=== PATIENT | female | born 1930 | race Caucasian/White ===

== ENCOUNTER 2017-11-11 10:23 | Inpatient (IN) | payer MEDICARE, BC ==
--- NOTE | 2017-11-11 10:59 | EDM.PDOC ---
ED HPI GENERAL MEDICAL PROBLEM - General Chief Complaint: Neuro Symptoms/Deficits Stated Complaint: DIZZY Time Seen by Provider: 11/11/17 10:55 Source of Information: Reports: Patient History Limitations: Reports: No Limitations - History of Present Illness INITIAL COMMENTS - FREE TEXT/NARRATIVE: HISTORY AND PHYSICAL: History of present illness: Patient is an 87-year-old female who presents to the emergency room today by ground ambulance with complaints of dizziness. She states she woke up today and "could barely lift my head up without being dizzy" and could not get comfortable. At this time she did have some nausea. States she was seen last Tuesday by Dr. Merritt and diagnosed with UTI. She was given 3 days of antibiotics and states she felt somewhat better after that. States she does have a history of labyrinthitis and dizziness. She states that in the past she has had to have her ears irrigated, but reports she "just had this done". EMS did give the patient 4 mg of Zofran prior to arrival. He states this has resolved her nausea at this time. Denies any headache, chest pain, palpitations, shortness of breath, abdominal pain, vomiting or diarrhea. Denies any recent injury, trauma or loss of consciousness Past medical history of diabetes type 2, atrial fibrillation/flutter, hypertension, dizziness, labyrinthitis. Review of systems: As per history of present illness and below otherwise all systems reviewed and negative. Past medical history: As per history of present illness and as reviewed below otherwise noncontributory. Surgical history: As per history of present illness and as reviewed below otherwise noncontributory. Social history: No reported history of drug or alcohol abuse. Family history: As per history of present illness and as reviewed below otherwise noncontributory. Physical exam: General: Well-developed and well-nourished 87-year-old female. Alert and oriented. Appears in no acute distress. HEENT: Atraumatic, normocephalic, pupils reactive, negative for conjunctival pallor or scleral icterus, mucous membranes moist, throat clear, neck supple, nontender, trachea midline. Lungs: Clear to auscultation, breath sounds equal bilaterally, chest nontender. Heart: S1S2, irregularly irregular Abdomen: Soft, nondistended, nontender. Negative for masses or hepatosplenomegaly. Negative for costovertebral tenderness. Pelvis: Stable nontender. Genitourinary: Deferred. Rectal: Deferred. Extremities: Atraumatic, moves all extremities well without difficulty or deficits. Neurovascular unremarkable. Neuro: Awake, alert, oriented. Cranial nerves II through XII unremarkable. Cerebellum unremarkable. Motor and sensory unremarkable throughout. Exam nonfocal. CBC, CMP, troponin are normal with the exception of a glucose of 233. She does have a history of diabetes type 2. Patient resting on the cot, continues to be alert and oriented. She did get herself up to the bathroom to void. Unfortunately she did not get a UA to sent to lab. Patient was reeducated. Reviewed her lab results. At this time she states she does not feel comfortable going home as she lives alone and has no one to help watch her. Did offer her observation admission. Will page Dr. Longoria. Dr. Longoria was contacted and consulted on this patient. He agrees to admit her for observation. We'll place on telemetry. Diagnostics: CBC, CMP, EKG, chest x-ray, UA Therapeutics: IV fluid Impression: Dizziness Hx of labyrinthitis Plan: Observation admission to [facility], Telemetry Definitive disposition and diagnosis as appropriate pending reevaluation and review of above. Onset: Today Duration: Hour(s):, Chronic (Intermittently has episodes of dizziness x years) - Related Data Allergies Allergy/AdvReac Type Severity Reaction Status Date / Time No Known Allergies Allergy Verified 11/11/17 10:24 Home Meds: Home Meds Digoxin 125 mcg PO DAILY 02/16/16 [History] Erythromycin Base [Erythromycin 0.5% Ophth Oint] 1 applic OP Q12H 02/16/16 [ History] Furosemide [Lasix] 40 mg PO DAILY 02/16/16 [History] Losartan/Hydrochlorothiazide [Losartan-HCTZ 100-25 MG] 1 each PO DAILY 02/16/16 [History] Meclizine [Antivert] 25 mg PO Q6H PRN #30 tablet 02/16/16 [Rx] Metoprolol Succinate [Toprol XL 50mg] 50 mg PO DAILY 02/16/16 [History] Potassium Chloride 20 meq PO DAILY 02/16/16 [History] Rosuvastatin [Crestor] 20 mg PO DAILY 02/16/16 [History] Warfarin Sodium [Jantoven] 1 mg PO DAILY 02/16/16 [History] Past Medical History HEENT History: Reports: None Cardiovascular History: Reports: Afib, Heart Failure, Hypertension Respiratory History: Reports: None Gastrointestinal History: Reports: None Genitourinary History: Reports: None [employer] History: Reports: Musculoskeletal History: Reports: None Neurological History: Reports: None Psychiatric History: Reports: Anxiety Endocrine/Metabolic History: Reports: Diabetes, Type II Hematologic History: Reports: None Immunologic History: Reports: None Oncologic (Cancer) History: Reports: None Dermatologic History: Reports: None - Infectious Disease History Infectious Disease History: Reports: Chicken Pox, Measles - Past Surgical History Head Surgeries/Procedures: Reports: None HEENT Surgical History: Reports: None Cardiovascular Surgical History: Reports: None Respiratory Surgical History: Reports: None GI Surgical History: Reports: None Female Surgical History: Reports: None Endocrine Surgical History: Reports: None Neurological Surgical History: Reports: None Musculoskeletal Surgical History: Reports: None Oncologic Surgical History: Reports: None Dermatological Surgical History: Reports: None Social & Family History - Family History Family Medical History: Noncontributory - Tobacco Use Smoking Status *Q: Never Smoker - Caffeine Use Caffeine Use: Reports: Coffee, Soda - Recreational Drug Use Recreational Drug Use: No ED ROS GENERAL - Review of Systems Review Of Systems: ROS reveals no pertinent complaints other than HPI. ED EXAM, NEURO - Physical Exam Exam: See Below (See dictation) Course - Vital Signs Last Recorded V/S: Last Vital Signs Temp 97.5 F 11/11/17 10:25 Pulse 95 11/11/17 10:25 Resp 18 11/11/17 10:25 BP 154/90 H 11/11/17 10:25 Pulse Ox 94 L 11/11/17 10:25 Orthostatic Blood Pressure [ 169/71 Standing] Orthostatic Blood Pressure [ 164/87 Sitting] Orthostatic Blood Pressure [ 161/87 Supine] - Orders/Labs/Meds Orders: Active Orders 24 hr Category Date Time Status Admission Status [Patient Status] [ADT] Stat ADT 11/11/17 12:49 Active Cardiac Monitoring [RC] . DIRECTED Care 11/11/17 12:49 Active EKG Documentation Completion [RC] STAT Care 11/11/17 10:26 Active Orthostatic Vital Signs [RC] ASDIRECTED Care 11/11/17 10:35 Active Chest 1V Frontal [CR] Stat Exams 11/11/17 10:35 Taken Head wo Cont [CT] Stat Exams 11/11/17 12:26 Ordered Sodium Chloride 0.9% [Normal Saline] 1,000 ml Med 11/11/17 11:00 Active IV STAT Medication Orders Sodium Chloride (Normal Saline) 1,000 mls @ 200 mls/hr IV STAT ONE Stop: 11/11/17 15:59 Last Admin: 11/11/17 11:27 Dose: 200 mls/hr Labs: Laboratory Tests 11/11/17 11/11/17 11/11/17 Range/Units 10:48 10:48 10:48 WBC 7.84 (4.0-11.0) K/uL RBC 4.69 (4.30-5.90) M/uL Hgb 14.5 (12.0-16.0) g/dL Hct 43.0 (36.0-46.0) % MCV 91.7 (80.0-98.0) fL MCH 30.9 (27.0-32.0) pg MCHC 33.7 (31.0-37.0) g/dL RDW Std Deviation 44.6 (28.0-62.0) fl RDW Coeff of Minnie 14 (11.0-15.0) % Plt Count 150 (150-400) K/uL MPV 10.20 (7.40-12.00) fL Neut % (Auto) 77.1 (48.0-80.0) % Lymph % (Auto) 12.0 L (16.0-40.0) % Upson % (Auto) 9.8 (0.0-15.0) % Eos % (Auto) 0.8 (0.0-7.0) % Baso % (Auto) 0.3 (0.0-1.5) % Neut # (Auto) 6.1 H (1.4-5.7) K/uL Lymph # (Auto) 0.9 (0.6-2.4) K/uL Upson # (Auto) 0.8 (0.0-0.8) K/uL Eos # (Auto) 0.1 (0.0-0.7) K/uL Baso # (Auto) 0.0 (0.0-0.1) K/uL Nucleated RBC % 0.0 /100WBC Nucleated RBCs # 0 K/uL INR 1.80 H (0.86-1.11) Sodium 137 (136-146) mmol/L Potassium 3.6 (3.5-5.1) mmol/L Chloride 103 (98-110) mmol/L Carbon Dioxide 26 (21-31) mmol/L BUN 18 (6.0-23.0) mg/dL Creatinine 0.8 (0.6-1.5) mg/dL Est Cr Clr Drug Dosing 42.93 mL/min Estimated GFR (MDRD) > 60.0 ml/min Glucose 233 H (60-110) mg/dL Calcium 10.5 (8.8-10.8) mg/dL Total Bilirubin 0.9 (0.1-1.5) mg/dL AST 20 (5-40) IU/L ALT 20 (8-54) IU/L Alkaline Phosphatase 50 (40-150) Troponin I < 0.10 (0.0-0.29) NG/ML Total Protein 7.2 (6.0-8.0) g/dL Albumin 4.2 (3.4-4.8) g/dL Globulin 3.0 (2.0-3.5) g/dL Albumin/Globulin Ratio 1.4 (1.3-2.8) Urine Color Urine Appearance Urine pH (5.0-8.0) Ur Specific Holstein (1.001-1.035) Urine Protein (NEGATIVE) mg/dL Urine Glucose (UA) (NEGATIVE) mg/dL Urine Ketones (NEGATIVE) mg/dL Urine Occult Blood (NEGATIVE) Urine Nitrite (NEGATIVE) Urine Bilirubin (NEGATIVE) Urine Urobilinogen (<2.0) EU/dL Ur Leukocyte Esterase (NEGATIVE) Urine RBC (0-2/HPF) Urine WBC (0-5/HPF) Ur Epithelial Cells (NONE-FEW) Urine Bacteria (NEGATIVE) 11/11/17 Range/Units 12:55 WBC (4.0-11.0) K/uL RBC (4.30-5.90) M/uL Hgb (12.0-16.0) g/dL Hct (36.0-46.0) % MCV (80.0-98.0) fL MCH (27.0-32.0) pg MCHC (31.0-37.0) g/dL RDW Std Deviation (28.0-62.0) fl RDW Coeff of Minnie (11.0-15.0) % Plt Count (150-400) K/uL MPV (7.40-12.00) fL Neut % (Auto) (48.0-80.0) % Lymph % (Auto) (16.0-40.0) % Upson % (Auto) (0.0-15.0) % Eos % (Auto) (0.0-7.0) % Baso % (Auto) (0.0-1.5) % Neut # (Auto) (1.4-5.7) K/uL Lymph # (Auto) (0.6-2.4) K/uL Upson # (Auto) (0.0-0.8) K/uL Eos # (Auto) (0.0-0.7) K/uL Baso # (Auto) (0.0-0.1) K/uL Nucleated RBC % /100WBC Nucleated RBCs # K/uL INR (0.86-1.11) Sodium (136-146) mmol/L Potassium (3.5-5.1) mmol/L Chloride (98-110) mmol/L Carbon Dioxide (21-31) mmol/L BUN (6.0-23.0) mg/dL Creatinine (0.6-1.5) mg/dL Est Cr Clr Drug Dosing mL/min Estimated GFR (MDRD) ml/min Glucose (60-110) mg/dL Calcium (8.8-10.8) mg/dL Total Bilirubin (0.1-1.5) mg/dL AST (5-40) IU/L ALT (8-54) IU/L Alkaline Phosphatase (40-150) Troponin I (0.0-0.29) NG/ML Total Protein (6.0-8.0) g/dL Albumin (3.4-4.8) g/dL Globulin (2.0-3.5) g/dL Albumin/Globulin Ratio (1.3-2.8) Urine Color YELLOW Urine Appearance CLEAR Urine pH 6.0 (5.0-8.0) Ur Specific [place] 1.025 (1.001-1.035) Urine Protein TRACE (NEGATIVE) mg/dL Urine Glucose (UA) NEGATIVE (NEGATIVE) mg/dL Urine Ketones NEGATIVE (NEGATIVE) mg/dL Urine Occult Blood NEGATIVE (NEGATIVE) Urine Nitrite NEGATIVE (NEGATIVE) Urine Bilirubin NEGATIVE (NEGATIVE) Urine Urobilinogen 0.2 (<2.0) EU/dL Ur Leukocyte Esterase NEGATIVE (NEGATIVE) Urine RBC 0-1 (0-2/HPF) Urine WBC 0-1 (0-5/HPF) Ur Epithelial Cells RARE (NONE-FEW) Urine Bacteria RARE (NEGATIVE) Meds: Medications Generic Name Dose Route Start Last Admin Trade Name Ochoa PRN Reason Stop Dose Admin Sodium Chloride 1,000 mls @ 200 mls/hr 11/11/17 11:00 11/11/17 11:27 Normal Saline IV 11/11/17 15:59 200 mls/hr STAT ONE Administration Departure - Departure Time of Disposition: 13:11 Disposition: Refer to Observation Clinical Impression: Dizziness - Discharge Information - My Orders Last 24 Hours: My Active Orders 11/11/17 10:26 EKG Documentation Completion [RC] STAT 11/11/17 10:35 Orthostatic Vital Signs [RC] ASDIRECTED Chest 1V Frontal [CR] Stat 11/11/17 11:00 Sodium Chloride 0.9% [Normal Saline] 1,000 ml IV STAT 11/11/17 12:26 Head wo Cont [CT] Stat 11/11/17 12:49 Admission Status [Patient Status] [ADT] Stat Cardiac Monitoring [RC] . DIRECTED - Assessment/Plan Last 24 Hours: My Active Orders 11/11/17 10:26 EKG Documentation Completion [RC] STAT 11/11/17 10:35 Orthostatic Vital Signs [RC] ASDIRECTED Chest 1V Frontal [CR] Stat 11/11/17 11:00 Sodium Chloride 0.9% [Normal Saline] 1,000 ml IV STAT 11/11/17 12:26 Head wo Cont [CT] Stat 11/11/17 12:49 Admission Status [Patient Status] [ADT] Stat Cardiac Monitoring [RC] . DIRECTED
[2017-11-11] MEDS ORDERED: Sodium Chloride 0.9% 1,000 ML IV ONE (11:00)
[2017-11-11 11:16] LABS: CHLORIDE,CL 103 mmol/L (98-110); SODIUM,NA 137 mmol/L (136-146)
[2017-11-11] MEDS ORDERED: Ondansetron 4 MG/2 ML SDV IVPUSH PRN (13:40)
[2017-11-11] MEDS ORDERED: Ondansetron 4 MG Tab.DIS PO PRN (13:40)
[2017-11-11] MEDS ORDERED: Acetaminophen 325 MG Tab PO PRN (13:40)
[2017-11-11] MEDS ORDERED: Meclizine 25 MG Tab PO PRN (13:44)
--- NOTE | 2017-11-11 14:05 | PCM.HP ---
H&P History of Present Illness - General Date of Service: 11/11/17 Admit Problem/Dx: Dizziness Source of Information: Patient, Other History Limitations: Reports: No Limitations - History of Present Illness Initial Comments - Free Text/Narative: 87 yo female presented to ED by EMS with chief complaint of dizziness. Patient states she woke this am and had difficulty getting up. Described a "room spinning" type of feeling without weakness. States she sat on the edge of her bed and did not think she would be able to stand up. She had some associated nausea without vomiting. She denies in weakness, slurring of speach , headache, syncopal event, or other focal neurologic deficits. She recently was seen, last Tuesday by Dr. Pinto who diagnosed her with a UTI. She was treated with abx for 3 days and reports complete resolution of symptoms. She does report some sore throat this am and some fatigue over the last several days. She did receive her influenza vaccine this year. She does have a history of labyrinthitis and dizziness. She was given 4 mg of Zofran in route to hospital and states that her nausea has improved since. She denies any chest pain, sob, or recent trauma. In ED CBC,CMP,CXR, were unremarkable. CT head showed no acute intracranial abnormalities. Patient will be admitted for observation with PT/Ot consult - Related Data Allergies/Adverse Reactions: Allergies Allergy/AdvReac Type Severity Reaction Status Date / Time No Known Allergies Allergy Verified 11/11/17 10:24 Home Medications: Home Meds Digoxin 125 mcg PO DAILY 02/16/16 [History] Erythromycin Base [Erythromycin 0.5% Ophth Oint] 1 applic OP Q12H 02/16/16 [ History] Furosemide [Lasix] 40 mg PO DAILY 02/16/16 [History] Losartan/Hydrochlorothiazide [Losartan-HCTZ 100-25 MG] 1 each PO DAILY 02/16/16 [History] Meclizine [Antivert] 25 mg PO Q6H PRN #30 tablet 02/16/16 [Rx] Metoprolol Succinate [Toprol XL 50mg] 50 mg PO DAILY 02/16/16 [History] Potassium Chloride 20 meq PO DAILY 02/16/16 [History] Rosuvastatin [Crestor] 20 mg PO DAILY 02/16/16 [History] Warfarin Sodium [Jantoven] 1 mg PO DAILY 02/16/16 [History] Past Medical History HEENT History: Reports: None Cardiovascular History: Reports: Afib, Heart Failure, Hypertension Respiratory History: Reports: None Gastrointestinal History: Reports: None Genitourinary History: Reports: None 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: Musculoskeletal History: Reports: None Neurological History: Reports: None Psychiatric History: Reports: Anxiety Endocrine/Metabolic History: Reports: Diabetes, Type II Hematologic History: Reports: None Immunologic History: Reports: None Oncologic (Cancer) History: Reports: None Dermatologic History: Reports: None - Infectious Disease History Infectious Disease History: Reports: Chicken Pox, Measles - Past Surgical History Head Surgeries/Procedures: Reports: None HEENT Surgical History: Reports: None Cardiovascular Surgical History: Reports: None Respiratory Surgical History: Reports: None GI Surgical History: Reports: None Female Surgical History: Reports: None Endocrine Surgical History: Reports: None Neurological Surgical History: Reports: None Musculoskeletal Surgical History: Reports: None Oncologic Surgical History: Reports: None Dermatological Surgical History: Reports: None Social & Family History - Family History Family Medical History: Noncontributory - Tobacco Use Smoking Status *Q: Never Smoker - Caffeine Use Caffeine Use: Reports: None - Recreational Drug Use Recreational Drug Use: No H&P Review of Systems - Review of Systems: Review Of Systems: See Below General: Reports: Fatigue. Denies: Fever, Chills, Malaise, Weakness HEENT: Reports: Sore Throat, Visual Changes. Denies: Dysphasia, Headaches Pulmonary: Denies: Shortness of Breath, Wheezing, Hemoptysis Cardiovascular: Denies: Chest Pain, Palpitations, Edema, Syncope Gastrointestinal: Denies: Abdominal Pain, Black Stool, Bloody Stool Genitourinary: Denies: Dysuria, Hematuria, Flank Pain Musculoskeletal: Denies: Neck Pain, Leg Pain Skin: Denies: Cyanosis Psychiatric: Denies: Confusion Neurological: Reports: Dizziness, Difficulty Walking. Denies: Confusion, Headache, Numbness, Paresthesia, Seizure, Syncope, Trouble Speaking, Weakness, Change in Speech Hematologic/Lymphatic: Reports: Easy Bleeding, Easy Bruising Exam - Exam Exam: See Below - Vital Signs Vital Signs: Last Vital Signs Temp 97.5 F 11/11/17 10:25 Pulse 102 H 11/11/17 13:17 Resp 18 11/11/17 13:17 BP 155/79 H 11/11/17 13:17 Pulse Ox 96 11/11/17 13:17 Weight: 55.9 kg - Exam Quality Assessment: DVT Prophylaxis General: Alert, Oriented, Cooperative HEENT: Conjunctiva Clear, EACs Clear, EOMI, Hearing Intact, Mucosa Moist & [place] , Nares Patent, Normal Nasal Septum, Posterior Pharynx Clear, PERRLA Neck: Supple, Trachea Midline, 2 Lungs: Clear to Auscultation, Normal Respiratory Effort Cardiovascular: Regular Rate, Normal S1, Normal S2, Systolic Murmur GI/Abdominal Exam: Normal Bowel Sounds, Soft, Non-Tender, No Organomegaly, No Distention Back Exam: Normal Inspection Extremities: Normal Inspection, Non-Tender, No Pedal Edema, Normal Capillary Refill Peripheral Pulses: 2+: Radial (L), Radial (R), Posterior Tibial (L), Posterior Tibial (R), Dorsalis Pedis (L), Dorsalis Pedis (R) Skin: Warm, Dry, Intact Neurological: Cranial Nerves Intact Neuro Extensive - Mental Status: Alert, Oriented x3, Normal Mood/Affect, Normal Cognition Neuro Extensive - Motor, Sensory, Reflexes: CN II-XII Intact Psychiatric: Alert, Normal Affect, Normal Mood - Patient Data Result Diagrams: 11/11/17 10:48 11/11/17 10:48 *Q Meaningful Use (ADM) - VTE *Q VTE Criteria *Q: - Stroke *Q Stroke Criteria *Q: - AMI *Q AMI Criteria *Q: - Problem List (1) BPPV (benign paroxysmal positional vertigo) SNOMED Code(s): 220808618 ICD Code: H81.10 - BENIGN PAROXYSMAL VERTIGO, UNSPECIFIED EAR Status: Acute Priority: High Current Visit: Yes Qualifiers: Laterality: unspecified laterality Qualified Code(s): H81.10 - Benign paroxysmal vertigo, unspecified ear (2) Dizziness SNOMED Code(s): 810420593 ICD Code: R42 - DIZZINESS AND GIDDINESS Status: Acute Priority: High Current Visit: Yes (3) Atrial fib/flutter, transient SNOMED Code(s): 639666452 ICD Code: PUI7426 - Status: Chronic Priority: Medium Current Visit: Yes (4) Atrial fibrillation SNOMED Code(s): 12387162 ICD Code: I48.91 - UNSPECIFIED ATRIAL FIBRILLATION Status: Chronic Priority: Medium Current Visit: Yes Qualifiers: Atrial fibrillation type: unspecified Qualified Code(s): I48.91 - Unspecified atrial fibrillation (5) Diabetes mellitus type 2, diet-controlled SNOMED Code(s): 62401193 ICD Code: E11.9 - TYPE 2 DIABETES MELLITUS WITHOUT COMPLICATIONS Status: Chronic Priority: Medium Current Visit: Yes Problem List Initiated/Reviewed/Updated: Yes Orders Last 24hrs: Active Orders 24 hr Category Date Time Status Patient Status [ADT] Routine ADT 11/11/17 13:40 Ordered Antiembolic Devices [RC] PER UNIT ROUTINE Care 11/11/17 13:41 Ordered Oxygen Therapy [RC] PRN Care 11/11/17 13:40 Ordered Up With Assistance [RC] ASDIRECTED Care 11/11/17 13:40 Ordered VTE/DVT Education [RC] PER UNIT ROUTINE Care 11/11/17 13:40 Ordered Vital Signs [RC] Q4H Care 11/11/17 13:40 Ordered OT Evaluation and Treatment [CONS] Routine Cons 11/11/17 13:38 Active PT Evaluation and Treatment [CONS] Routine Cons 11/11/17 13:38 Active Heart Healthy Diet [DIET] Diet 11/11/17 Dinner Ordered BASIC METABOLIC PANEL,BMP [CHEM] AM Lab 11/12/17 05:11 Ordered BASIC METABOLIC PANEL,BMP [CHEM] AM Lab 11/13/17 05:11 Ordered BASIC METABOLIC PANEL,BMP [CHEM] AM Lab 11/14/17 05:11 Ordered CBC WITH AUTO DIFF [HEME] AM Lab 11/12/17 05:11 Ordered CBC WITH AUTO DIFF [HEME] AM Lab 11/13/17 05:11 Ordered CBC WITH AUTO DIFF [HEME] AM Lab 11/14/17 05:11 Ordered INFLUENZA A+B AG SCREEN [RM] Stat Lab 11/11/17 13:40 Uncollected STREP SCRN A RAPID W CULT CONF [RM] Stat Lab 11/11/17 13:40 Uncollected Acetaminophen [Tylenol] Med 11/11/17 13:40 Ordered 650 mg PO Q4H PRN Digoxin [Lanoxin] Med 11/12/17 09:00 Ordered 125 mcg PO DAILY Erythromycin Base [Erythromycin 0.5% Ophth Oint] Med 11/11/17 13:45 Ordered 1 applic OP Q12H Furosemide [Lasix] Med 11/12/17 09:00 Ordered 40 mg PO DAILY Losartan/Hydrochlorothiazide [Losartan-HCTZ 100-25 MG] Med 11/12/17 09:00 Ordered 1 each PO DAILY Meclizine [Antivert] Med 11/11/17 13:44 Ordered 25 mg PO Q6H PRN Metoprolol Succinate [Toprol XL] Med 11/12/17 09:00 Ordered 50 mg PO DAILY Ondansetron [Zofran ODT] Med 11/11/17 13:40 Ordered 4 mg PO Q4H PRN Ondansetron [Zofran] Med 11/11/17 13:40 Ordered 4 mg IVPUSH Q4H PRN Potassium Chloride [Potassium Chloride] Med 11/12/17 09:00 Ordered 20 meq PO DAILY Rosuvastatin [Crestor] Med 11/12/17 09:00 Ordered 20 mg PO DAILY Warfarin Sliding Scale [Coumadin Sliding Scale] Med 11/12/17 09:00 Ordered 1 mg PO DAILY Sequential Compression Device [OM.PC] Per Unit Routine Oth 11/11/17 13:41 Ordered Resuscitation Status Routine Resus Stat 11/11/17 13:40 Ordered Medication Orders Acetaminophen (Tylenol) 650 mg PO Q4H PRN PRN Reason: Pain (Mild 1-3)/fever Digoxin (Lanoxin) 125 mcg PO DAILY MICHELLE Erythromycin (Erythromycin 0.5% Ophth Oint) 1 gm EYEBOTH Q12H MICHELLE Furosemide (Lasix) 40 mg PO DAILY MICHELLE HCTZ/Losartan Potassium (Hyzaar 50-12.5 Mg) 2 tab PO DAILY MICHELLE Sodium Chloride (Normal Saline) 1,000 mls @ 200 mls/hr IV STAT ONE Stop: 11/11/17 15:59 Last Admin: 11/11/17 11:27 Dose: 200 mls/hr Meclizine HCl (Antivert) 25 mg PO Q6H PRN PRN Reason: Dizziness Metoprolol Succinate (Toprol Xl) 50 mg PO DAILY MICHELLE Ondansetron HCl (Zofran Odt) 4 mg PO Q4H PRN PRN Reason: nausea, able to take PO Ondansetron HCl (Zofran) 4 mg IVPUSH Q4H PRN PRN Reason: Nausea Potassium Chloride (Klor-Con M20) 20 meq PO DAILY MICHELLE Rosuvastatin Calcium (Crestor) 20 mg PO DAILY MICHELLE Warfarin Sodium (Coumadin) 1 mg PO DAILY@1400 [facility] Assessment/Plan Comment:: 87 yo female admitted 11/11/17 for dizziness suspected BPPV with pmh of a-fib/ flutter on coumadin, htn, hyperlipidemia, and type II diabetes. Dizziness: Suspect BPPV will have PT/OT see patient today. She does live alone and has no family in town. States that she has good neighbors who help with anything she needs. May need Epy maneuver as per PT/OT. Zofran for nausea. Will get rapid strep for reported sore throat and Influenza screen for fatigue. a-fib/flutter: Telemetery on Coumadin rate controlled. htn: stable resume home meds. hyperlipidemia: Stable resume home meds. Diabetes: Not on home medications and suspect diet controlled will place on ISS low while in house. VTE: SCD on Coumadin Dispo: Tomorrow pending PT/OT
[2017-11-11] MEDS: POTASSIUM 20 MEQ PO SCH ×2 (14:38→20:24)
[2017-11-11] MEDS: ROSUVASTATIN 10 MG PO SCH (14:38)
[2017-11-11] MEDS: DIGOXIN 0.125 MG PO SCH (14:39)
[2017-11-11] MEDS: WARFARIN 1 MG PO SCH (14:39)
[2017-11-11] MEDS: FUROSEMIDE 40 MG PO SCH (14:39)
[2017-11-11] MEDS: LOSARTAN/HCTZ 100/25 PO SCH (14:39)
[2017-11-11] MEDS: METOPROLOL 50 MG PO SCH (14:39)
[2017-11-11] MEDS: Erythromycin Base 0.5% Ophth Oint 1 GM Tube EYEBOTH SCH (14:40)
[2017-11-11] MEDS: Insulin Aspart 100 Units/ML 3 ML Pen SUBCUT SCH (17:32)
--- NOTE | 2017-11-11 18:17 | CR ---
EXAM DATE: 11/11/17 PATIENT'S AGE: 87 Patient: EUSEBIO NEWBERRY Facility: [place], [place] Site . Site : [id number] Study: XRay Chest [id number] 11:26:32 AM Ordering Physician: Doctor Salamanca Final Report: INDICATION: Dizziness TECHNIQUE: Chest one-view COMPARISON: None FINDINGS: Cardiovascular and mediastinum: Stable cardiomegaly. Mediastinum is within normal limits. Lungs and pleural spaces: Lungs are clear. No sign of infiltrate or mass. No sign of pleural effusion. No pneumothorax. Bones and soft tissues: No significant findings. IMPRESSION: No acute pulmonary or cardiac abnormalities. Stable cardiomegaly Dictated by Servando Mobley MD @ 11/11/2017 11:40:40 AM Dictated by: Servando Mobley MD @ 11/11/2017 11:40:49 (Electronic Signature) Report Signed by Proxy. [facility]ITALAlec
--- NOTE | 2017-11-11 18:26 | CT ---
EXAM DATE: 11/11/17 PATIENT'S AGE: 87 Patient: EUSEBIO NEWBERRY Facility: [place], [place] Site Site : [id number] Study: CT Head [id number] 1:20:50 PM Ordering Physician: DESMOND SERRANO NP Final Report: Indication: Pain, sinus congestion. Technique: Multiaxial CT of the head without contrast. Coronal and sagittal reformats were submitted. Comparison: No prior studies available for comparison at this institution. Findings: The ventricles, sulci and gyri are of normal size, shape and contour. A few small discrete foci of T2 prolongation are present in the periventricular and subcortical white matter, nonspecific but most commonly noted in the setting of chronic small vessel ischemic changes. Midline structures are centrally located. No convincing evidence of intra- or extra-axial fluid collections. The calvarium and skull base are unremarkable, with normal aeration of the visualized petrous temporal bones and paranasal sinuses on both sides. Impression: No radiographic evidence of acute intracranial abnormality. Please note that all CT scans at this facility use dose modulation, iterative reconstruction, and/or weight-based dosing when appropriate to reduce radiation dose to as low as reasonably achievable. Dictated by Servando Fisher MD @ Nov 11 2017 1:42PM (Electronic Signature) Report Signed by Proxy. TREY
[2017-11-12] MEDS: Erythromycin Base 0.5% Ophth Oint 1 GM Tube EYEBOTH SCH ×2 (00:45→14:18)
[2017-11-12] MEDS: Insulin Aspart 100 Units/ML 3 ML Pen SUBCUT SCH ×3 (07:12→17:33)
[2017-11-12 07:35] LABS: CHLORIDE,CL 96 mmol/L (98-110); SODIUM,NA 130 mmol/L (136-146)
--- NOTE | 2017-11-12 11:04 | PCM.PN ---
- General Info Date of Service: 11/12/17 Admission Dx/Problem (Free Text): Dizziness Subjective Update: Still have dizziness this morning but has improved some overnight. Having some associated nausea when ambulating or moving quickly. Is drinking fluids and eating soda crackers. Did not sleep well. Is interested in having Eply maneuver done today. Functional Status: Reports: Pain Controlled - Review of Systems General: Reports: Weakness, Fatigue, Malaise. Denies: Fever HEENT: Reports: Visual Changes. Denies: Headaches, Sore Throat Pulmonary: Denies: Shortness of Breath, Hemoptysis, Wheezing Cardiovascular: Denies: Chest Pain, Palpitations, Edema Gastrointestinal: Reports: Nausea. Denies: Abdominal Pain, Constipation, Vomiting Genitourinary: Denies: Dysuria, Hematuria Musculoskeletal: Denies: Neck Pain, Leg Pain Skin: Denies: Cyanosis Neurological: Reports: Dizziness, Difficulty Walking, Weakness. Denies: Confusion, Headache Psychiatric: Denies: Confusion - Patient Data Vitals - Most Recent: Last Vital Signs Temp 97.5 F 11/12/17 08:00 Pulse 82 11/12/17 08:00 Resp 18 11/12/17 08:00 BP 126/75 11/12/17 08:00 Pulse Ox 95 11/12/17 08:00 Weight - Most Recent: 55.9 kg I&O - Last 24 Hours: Intake & Output 11/11/17 11/12/17 11/12/17 22:59 06:59 14:59 Intake Total 1100 800 Output Total 500 Balance 1100 300 Lab Results Last 24 Hours: Laboratory Results - last 24 hr 11/11/17 11/12/17 11/12/17 Range/Units 16:17 06:46 06:46 WBC 9.09 (4.0-11.0) K/uL RBC 4.57 (4.30-5.90) M/uL Hgb 14.2 (12.0-16.0) g/dL Hct 40.9 (36.0-46.0) % MCV 89.5 (80.0-98.0) fL MCH 31.1 (27.0-32.0) pg MCHC 34.7 (31.0-37.0) g/dL RDW Std Deviation 43.5 (28.0-62.0) fl RDW Coeff of Minnie 13 (11.0-15.0) % Plt Count 167 (150-400) K/uL MPV 10.80 (7.40-12.00) fL Neut % (Auto) 71.4 (48.0-80.0) % Lymph % (Auto) 14.0 L (16.0-40.0) % Mckenzie % (Auto) 14.2 (0.0-15.0) % Eos % (Auto) 0.3 (0.0-7.0) % Baso % (Auto) 0.1 (0.0-1.5) % Neut # (Auto) 6.5 H (1.4-5.7) K/uL Lymph # (Auto) 1.3 (0.6-2.4) K/uL Mckenzie # (Auto) 1.3 H (0.0-0.8) K/uL Eos # (Auto) 0.0 (0.0-0.7) K/uL Baso # (Auto) 0.0 (0.0-0.1) K/uL Nucleated RBC % 0.0 /100WBC Nucleated RBCs # 0 K/uL Sodium 130 L (136-146) mmol/L Potassium 3.6 (3.5-5.1) mmol/L Chloride 96 L (98-110) mmol/L Carbon Dioxide 24 (21-31) mmol/L BUN 16 (6.0-23.0) mg/dL Creatinine 0.8 (0.6-1.5) mg/dL Est Cr Clr Drug Dosing 43.72 mL/min Estimated GFR (MDRD) > 60.0 ml/min Glucose 198 H (60-110) mg/dL POC Glucose 177 H (60-110) mg/dL Calcium 10.0 (8.8-10.8) mg/dL Tre Results Last 24 Hours: Microbiology 11/11/17 15:00 Influenza Type A Antigen Screen - Final Nasopharyngeal Swab NEGATIVE INFLUENZA A VIRUS AG Influenza Type B Antigen Screen - Final NEGATIVE INFLUENZA B VIRUS AG 11/11/17 15:00 Group A Streptococcus Rapid Screen - Final Throat NEGATIVE STREP A SCREEN Med Orders - Current: Current Medications Acetaminophen (Tylenol) 650 mg PO Q4H PRN PRN Reason: Pain (Mild 1-3)/fever Last Admin: 11/11/17 20:34 Dose: 650 mg Erythromycin (Erythromycin 0.5% Ophth Oint) 1 gm EYEBOTH Q12H [facility] Last Admin: 11/12/17 00:45 Dose: 1 applic Insulin Aspart (Novolog) 0 unit SUBCUT TIDAC [facility] [place] PRN Reason: Protocol Last Admin: 11/12/17 07:12 Dose: 1 unit Meclizine HCl (Antivert) 25 mg PO Q6H PRN PRN Reason: Dizziness Ondansetron HCl (Zofran Odt) 4 mg PO Q4H PRN PRN Reason: nausea, able to take PO Ondansetron HCl (Zofran) 4 mg IVPUSH Q4H PRN PRN Reason: Nausea Last Admin: 11/12/17 10:36 Dose: 4 mg Digoxin 0.125 Mg 1 each PO DAILY [facility] Last Admin: 11/11/17 14:39 Dose: 1 each Furosemide 40 Mg 1 each PO DAILY [facility] [place] Last Admin: 11/11/17 14:39 Dose: 1 each Losartan/Hctz 100/25 1 each PO DAILY [facility] [place] Last Admin: 11/11/17 14:39 Dose: 1 each Metoprolol Er 50 Mg 1 each PO DAILY [facility] [place] Last Admin: 11/11/17 14:39 Dose: 1 each Potassium 20 Meq 1 each PO BID [facility] [place] Last Admin: 11/11/17 20:24 Dose: 1 each Rosuvastatin 10 Mg 1 each PO DAILY [facility] [place] Last Admin: 11/11/17 14:38 Dose: 1 each Warfarin 1 Mg 2 each PO DAILY@1400 [facility] [place] Last Admin: 11/11/17 14:39 Dose: 2 each Discontinued Medications Sodium Chloride (Normal Saline) 1,000 mls @ 200 mls/hr IV STAT ONE Stop: 11/11/17 15:59 Last Admin: 11/11/17 11:27 Dose: 200 mls/hr Warfarin Sodium (Coumadin) 1 mg PO DAILY@1400 [facility] [place] Last Admin: 11/11/17 15:15 Dose: Not Given - Exam Quality Assessment: DVT Prophylaxis General: Alert, Oriented, Cooperative, No Acute Distress HEENT: Pupils Equal, Pupils Reactive, EOMI, Mucous Membr. Moist/[place] Neck: Supple, Trachea Midline Lungs: Clear to Auscultation, Normal Respiratory Effort Cardiovascular: Regular Rate, Regular Rhythm, No Murmurs GI/Abdominal Exam: Normal Bowel Sounds, Soft, Non-Tender, No Organomegaly, No Distention Back Exam: Normal Inspection, Full Range of Motion Extremities: Normal Inspection, Normal Range of Motion, Non-Tender, No Pedal Edema, Normal Capillary Refill Peripheral Pulses: 2+: Radial (L), Radial (R), Posterior Tibial (L), Posterior Tibial (R), Dorsalis Pedis (L), Dorsalis Pedis (R) Skin: Warm, Dry, Intact Neurological: No New Focal Deficit Psy/Mental Status: Alert, Normal Affect, Normal Mood - Problem List & Annotations (1) BPPV (benign paroxysmal positional vertigo) SNOMED Code(s): 991338019 Code(s): H81.10 - BENIGN PAROXYSMAL VERTIGO, UNSPECIFIED EAR Status: Acute Priority: High Current Visit: Yes Qualifiers: Laterality: unspecified laterality Qualified Code(s): H81.10 - Benign paroxysmal vertigo, unspecified ear (2) Dizziness SNOMED Code(s): 881000128 Code(s): R42 - DIZZINESS AND GIDDINESS Status: Acute Priority: High Current Visit: Yes (3) Atrial fib/flutter, transient SNOMED Code(s): 307803048 Code(s): GIB4610 - Status: Chronic Priority: Medium Current Visit: Yes (4) Atrial fibrillation SNOMED Code(s): 50536475 Code(s): I48.91 - UNSPECIFIED ATRIAL FIBRILLATION Status: Chronic Priority: Medium Current Visit: Yes Qualifiers: Atrial fibrillation type: unspecified Qualified Code(s): I48.91 - Unspecified atrial fibrillation (5) Diabetes mellitus type 2, diet-controlled SNOMED Code(s): 64691537 Code(s): E11.9 - TYPE 2 DIABETES MELLITUS WITHOUT COMPLICATIONS Status: Chronic Priority: Medium Current Visit: Yes - Problem List Review Problem List Initiated/Reviewed/Updated: Yes - My Orders Last 24 Hours: My Active Orders 11/11/17 13:38 PT Evaluation and Treatment [CONS] Routine 11/11/17 13:40 Patient Status [ADT] Routine Up With Assistance [RC] ASDIRECTED VTE/DVT Education [RC] PER UNIT ROUTINE Vital Signs [RC] Q4H Acetaminophen [Tylenol] 650 mg PO Q4H PRN Ondansetron [Zofran ODT] 4 mg PO Q4H PRN Ondansetron [Zofran] 4 mg IVPUSH Q4H PRN Resuscitation Status Routine 11/11/17 13:41 Antiembolic Devices [RC] PER UNIT ROUTINE Sequential Compression Device [OM.PC] Per Unit Routine 11/11/17 13:44 Meclizine [Antivert] 25 mg PO Q6H PRN 11/11/17 13:45 Erythromycin Base [Erythromycin 0.5% Ophth Oint] 1 gm EYEBOTH Q12H 11/11/17 14:00 Patient's Own Medication [Ptom] 1 each PO BID 11/11/17 14:21 Telemetry Monitoring [Cardiac Monitoring] [RC] . DIRECTED 11/11/17 14:30 Patient's Own Medication [Ptom] 1 each PO DAILY 11/11/17 15:00 CULTURE STREP A CONFIRMATION [RM] Stat STREP SCRN A RAPID W CULT CONF [RM] Stat Patient's Own Medication [Ptom] 1 each PO DAILY Patient's Own Medication [Ptom] 1 each PO DAILY Patient's Own Medication [Ptom] 1 each PO DAILY Patient's Own Medication [Ptom] 1 each PO DAILY Patient's Own Medication [Ptom] 2 each PO DAILY@1400 11/11/17 17:00 Insulin Aspart [NovoLOG] See Protocol SUBCUT TIDAC 11/11/17 19:20 Blood Glucose Check, Bedside [RC] TIDAC 11/11/17 Dinner Heart Healthy Diet [DIET] 11/12/17 10:55 INR,PT,PROTHROMBIN TIME [COAG] Routine 11/13/17 05:11 BASIC METABOLIC PANEL,BMP [CHEM] AM CBC WITH AUTO DIFF [HEME] AM 11/13/17 05:30 INR,PT,PROTHROMBIN TIME [COAG] DAILY 11/14/17 05:11 BASIC METABOLIC PANEL,BMP [CHEM] AM CBC WITH AUTO DIFF [HEME] AM 11/14/17 05:30 INR,PT,PROTHROMBIN TIME [COAG] DAILY 11/15/17 05:30 INR,PT,PROTHROMBIN TIME [COAG] DAILY - Plan Plan:: 87 yo female admitted 11/11/17 for dizziness suspected BPPV with pmh of a-fib/ flutter on coumadin, htn, hyperlipidemia, and type II diabetes. Dizziness: Suspect BPPV PT was able to see patient but there vestibular qualified therapist is unavailable. They are available Tuesday of next week 11/16/17. We did try the Epy maneuver today. Patient thought it may have helped some but was nauseated with some vomiting after the maneuver. I do not believe it was effective. Rapid Strep and influenza were negative. Will watch again today and see if there is any improvement overnight. Zofran for nausea. a-fib/flutter: Telemetery on Coumadin rate controlled. htn: stable resume home meds. hyperlipidemia: Stable resume home meds. Diabetes: Not on home medications and suspect diet controlled will place on ISS low while in house. VTE: SCD on Coumadin Dispo: Tomorrow pending.
[2017-11-12] MEDS: DIGOXIN 0.125 MG PO SCH (11:29)
[2017-11-12] MEDS: LOSARTAN/HCTZ 100/25 PO SCH (11:30)
[2017-11-12] MEDS: METOPROLOL 50 MG PO SCH (11:30)
[2017-11-12] MEDS: FUROSEMIDE 40 MG PO SCH (11:30)
[2017-11-12] MEDS: POTASSIUM 20 MEQ PO SCH ×2 (11:30→20:31)
[2017-11-12] MEDS: ROSUVASTATIN 10 MG PO SCH (11:31)
[2017-11-12] MEDS: WARFARIN 1 MG PO SCH (14:18)
[2017-11-12] MEDS ORDERED: predniSONE 20 MG Tab PO ONE (16:50)
--- NOTE | 2017-11-12 16:53 | PCM.SN ---
- Free Text/Narrative Note: Patient still having dizziness/vertigo. I believe this may have more of an acute labyrinthitis picture vs BPPV. She does have a history of a previous episode of labyrinthitis. We will start prednisone 60 mg po q day x 5 days then 40 mg day 6, 30 mg day 7, 20 mg day 8, 10 mg day 9, and 5 mg day 10.
[2017-11-12] MEDS: Pantoprazole 40 MG Tab.CR PO SCH (17:37)
[2017-11-13] MEDS: Erythromycin Base 0.5% Ophth Oint 1 GM Tube EYEBOTH SCH ×2 (01:55→17:32)
[2017-11-13 06:24] LABS: CHLORIDE,CL 90 mmol/L (98-110); SODIUM,NA 126 mmol/L (136-146)
[2017-11-13] MEDS: Pantoprazole 40 MG Tab.CR PO SCH (06:39)
[2017-11-13] MEDS: Insulin Aspart 100 Units/ML 3 ML Pen SUBCUT SCH ×2 (07:03→17:32)
[2017-11-13] MEDS: POTASSIUM 20 MEQ PO SCH ×2 (09:48→21:59)
[2017-11-13] MEDS: METOPROLOL 50 MG PO SCH (09:49)
[2017-11-13] MEDS: ROSUVASTATIN 10 MG PO SCH (09:49)
[2017-11-13] MEDS: LOSARTAN/HCTZ 100/25 PO SCH (09:49)
[2017-11-13] MEDS: FUROSEMIDE 40 MG PO SCH (09:49)
[2017-11-13] MEDS: DIGOXIN 0.125 MG PO SCH (09:49)
--- NOTE | 2017-11-13 09:56 | PCM.PN ---
- General Info Date of Service: 11/13/17 Admission Dx/Problem (Free Text): Dizziness Subjective Update: Patient states she is feeling much better today. Still some dizziness but last evening nausea was completely relieved and her appetite returned. She has been up to the bathroom but still needing assistance. Still having some vertigo when she gets up but significantly improved. Denies chest pain, palp, sob, abd pain, diarrhea, constipation, focal neurlogic deficits. Functional Status: Reports: Pain Controlled - Review of Systems General: Denies: Fever, Weakness, Fatigue, Malaise HEENT: Reports: Visual Changes (vertigo improved). Denies: Dysphasia Pulmonary: Denies: Shortness of Breath, Pleuritic Chest Pain, Hemoptysis Cardiovascular: Denies: Chest Pain, Palpitations, Edema Gastrointestinal: Denies: Abdominal Pain, Constipation, Diarrhea, Nausea, Vomiting Genitourinary: Denies: Dysuria, Hematuria Musculoskeletal: Denies: Neck Pain, Leg Pain Neurological: Reports: Dizziness. Denies: Confusion, Headache Psychiatric: Denies: Confusion - Patient Data Vitals - Most Recent: Last Vital Signs Temp 98.1 F 11/13/17 04:00 Pulse 84 11/13/17 04:00 Resp 18 11/13/17 04:00 BP 124/67 11/13/17 04:00 Pulse Ox 97 11/13/17 04:00 Weight - Most Recent: 55.9 kg I&O - Last 24 Hours: Intake & Output 11/12/17 11/13/17 11/13/17 22:59 06:59 14:59 Intake Total 1040 500 Output Total 800 350 Balance 240 150 Lab Results Last 24 Hours: Laboratory Results - last 24 hr 11/12/17 11/12/17 11/12/17 Range/Units 06:28 10:55 11:22 WBC (4.0-11.0) K/uL RBC (4.30-5.90) M/uL Hgb (12.0-16.0) g/dL Hct (36.0-46.0) % MCV (80.0-98.0) fL MCH (27.0-32.0) pg MCHC (31.0-37.0) g/dL RDW Std Deviation (28.0-62.0) fl RDW Coeff of Minnie (11.0-15.0) % Plt Count (150-400) K/uL MPV (7.40-12.00) fL Neut % (Auto) (48.0-80.0) % Lymph % (Auto) (16.0-40.0) % [place] % (Auto) (0.0-15.0) % Eos % (Auto) (0.0-7.0) % Baso % (Auto) (0.0-1.5) % Neut # (Auto) (1.4-5.7) K/uL Lymph # (Auto) (0.6-2.4) K/uL [place] # (Auto) (0.0-0.8) K/uL Eos # (Auto) (0.0-0.7) K/uL Baso # (Auto) (0.0-0.1) K/uL Nucleated RBC % /100WBC Nucleated RBCs # K/uL INR 2.03 H (0.86-1.11) Sodium (136-146) mmol/L Potassium (3.5-5.1) mmol/L Chloride (98-110) mmol/L Carbon Dioxide (21-31) mmol/L BUN (6.0-23.0) mg/dL Creatinine (0.6-1.5) mg/dL Est Cr Clr Drug Dosing mL/min Estimated GFR (MDRD) ml/min Glucose (60-110) mg/dL POC Glucose 189 H 226 H (60-110) mg/dL Calcium (8.8-10.8) mg/dL 11/12/17 11/13/17 11/13/17 Range/Units 15:50 05:47 05:47 WBC 6.34 (4.0-11.0) K/uL RBC 4.60 (4.30-5.90) M/uL Hgb 14.2 (12.0-16.0) g/dL Hct 40.4 (36.0-46.0) % MCV 87.8 (80.0-98.0) fL MCH 30.9 (27.0-32.0) pg MCHC 35.1 (31.0-37.0) g/dL RDW Std Deviation 41.6 (28.0-62.0) fl RDW Coeff of Minnie 13 (11.0-15.0) % Plt Count 165 (150-400) K/uL MPV 10.40 (7.40-12.00) fL Neut % (Auto) 80.1 H (48.0-80.0) % Lymph % (Auto) 14.5 L (16.0-40.0) % [place] % (Auto) 5.4 (0.0-15.0) % Eos % (Auto) 0.0 (0.0-7.0) % Baso % (Auto) 0.0 (0.0-1.5) % Neut # (Auto) 5.1 (1.4-5.7) K/uL Lymph # (Auto) 0.9 (0.6-2.4) K/uL [place]leigh # (Auto) 0.3 (0.0-0.8) K/uL Eos # (Auto) 0.0 (0.0-0.7) K/uL Baso # (Auto) 0.0 (0.0-0.1) K/uL Nucleated RBC % 0.0 /100WBC Nucleated RBCs # 0 K/uL INR (0.86-1.11) Sodium 126 L (136-146) mmol/L Potassium 3.3 L (3.5-5.1) mmol/L Chloride 90 L (98-110) mmol/L Carbon Dioxide 25 (21-31) mmol/L BUN 17 (6.0-23.0) mg/dL Creatinine 0.8 (0.6-1.5) mg/dL Est Cr Clr Drug Dosing 43.72 mL/min Estimated GFR (MDRD) > 60.0 ml/min Glucose 255 H (60-110) mg/dL POC Glucose 218 H (60-110) mg/dL Calcium 10.3 (8.8-10.8) mg/dL 11/13/17 11/13/17 Range/Units 05:47 05:47 WBC (4.0-11.0) K/uL RBC (4.30-5.90) M/uL Hgb (12.0-16.0) g/dL Hct (36.0-46.0) % MCV (80.0-98.0) fL MCH (27.0-32.0) pg MCHC (31.0-37.0) g/dL RDW Std Deviation (28.0-62.0) fl RDW Coeff of Minnie (11.0-15.0) % Plt Count (150-400) K/uL MPV (7.40-12.00) fL Neut % (Auto) (48.0-80.0) % Lymph % (Auto) (16.0-40.0) % [place] % (Auto) (0.0-15.0) % Eos % (Auto) (0.0-7.0) % Baso % (Auto) (0.0-1.5) % Neut # (Auto) (1.4-5.7) K/uL Lymph # (Auto) (0.6-2.4) K/uL [place]leigh # (Auto) (0.0-0.8) K/uL Eos # (Auto) (0.0-0.7) K/uL Baso # (Auto) (0.0-0.1) K/uL Nucleated RBC % /100WBC Nucleated RBCs # K/uL INR 2.47 H (0.86-1.11) Sodium (136-146) mmol/L Potassium (3.5-5.1) mmol/L Chloride (98-110) mmol/L Carbon Dioxide (21-31) mmol/L BUN (6.0-23.0) mg/dL Creatinine (0.6-1.5) mg/dL Est Cr Clr Drug Dosing mL/min Estimated GFR (MDRD) ml/min Glucose (60-110) mg/dL POC Glucose 192 H (60-110) mg/dL Calcium (8.8-10.8) mg/dL Tre Results Last 24 Hours: Microbiology 11/11/17 15:00 Quick Strep Confirmation Culture - Final Throat NO GROUP A STREP ISOLATED Group A Streptococcus Rapid Screen - Final NEGATIVE STREP A SCREEN Med Orders - Current: Current Medications Acetaminophen (Tylenol) 650 mg PO Q4H PRN PRN Reason: Pain (Mild 1-3)/fever Last Admin: 11/11/17 20:34 Dose: 650 mg Erythromycin (Erythromycin 0.5% Ophth Oint) 1 gm EYEBOTH Q12H [facility] Last Admin: 11/13/17 01:55 Dose: Not Given Insulin Aspart (Novolog) 0 unit SUBCUT TIDAC [facility] PRN Reason: Protocol Last Admin: 11/13/17 07:03 Dose: 1 unit Meclizine HCl (Antivert) 25 mg PO Q6H PRN PRN Reason: Dizziness Ondansetron HCl (Zofran Odt) 4 mg PO Q4H PRN PRN Reason: nausea, able to take PO Ondansetron HCl (Zofran) 4 mg IVPUSH Q4H PRN PRN Reason: Nausea Last Admin: 11/12/17 10:36 Dose: 4 mg Pantoprazole Sodium (Protonix) 40 mg PO ACBREAKFAST [facility] Last Admin: 11/13/17 06:39 Dose: 40 mg Digoxin 0.125 Mg 1 each PO DAILY [facility] Last Admin: 11/13/17 09:49 Dose: 1 each Furosemide 40 Mg 1 each PO DAILY [facility] Last Admin: 11/13/17 09:49 Dose: 1 each Losartan/Hctz 100/25 1 each PO DAILY [facility] Last Admin: 11/13/17 09:49 Dose: 1 each Metoprolol Er 50 Mg 1 each PO DAILY [facility] Last Admin: 11/13/17 09:49 Dose: 1 each Potassium 20 Meq 1 each PO BID [facility] Last Admin: 11/13/17 09:48 Dose: 1 each Rosuvastatin 10 Mg 1 each PO DAILY [facility] Last Admin: 11/13/17 09:49 Dose: 1 each Warfarin 1 Mg 1 each PO DAILY@1400 [facility] Prednisone (Prednisone) 60 mg PO DAILY [facility] Discontinued Medications Sodium Chloride (Normal Saline) 1,000 mls @ 200 mls/hr IV STAT ONE Stop: 11/11/17 15:59 Last Admin: 11/11/17 11:27 Dose: 200 mls/hr Warfarin 1 Mg 2 each PO DAILY@1400 [facility] [place] Last Admin: 11/12/17 14:18 Dose: 2 each Prednisone (Prednisone) 60 mg PO ONETIME ONE Stop: 11/12/17 16:51 Last Admin: 11/12/17 17:33 Dose: 60 mg Warfarin Sodium (Coumadin) 1 mg PO DAILY@1400 [facility] Last Admin: 11/11/17 15:15 Dose: Not Given - Exam Quality Assessment: DVT Prophylaxis General: Alert, Oriented, Cooperative, No Acute Distress HEENT: Pupils Equal, Pupils Reactive, EOMI, Mucous Membr. Moist/[place] Neck: Supple, Trachea Midline Lungs: Clear to Auscultation, Normal Respiratory Effort Cardiovascular: Regular Rate, Regular Rhythm, Murmurs GI/Abdominal Exam: Normal Bowel Sounds, Soft, Non-Tender, No Organomegaly, No Distention Back Exam: Normal Inspection Extremities: Normal Inspection, Non-Tender, No Pedal Edema, Normal Capillary Refill Peripheral Pulses: 2+: Radial (L), Radial (R), Posterior Tibial (L), Posterior Tibial (R), Dorsalis Pedis (L), Dorsalis Pedis (R) Skin: Warm, Dry, Intact Wound/Incisions: Healing Well Neurological: No New Focal Deficit Psy/Mental Status: Alert, Normal Affect, Normal Mood - Problem List & Annotations (1) BPPV (benign paroxysmal positional vertigo) SNOMED Code(s): 747606350 Code(s): H81.10 - BENIGN PAROXYSMAL VERTIGO, UNSPECIFIED EAR Status: Suspected Priority: High Current Visit: Yes Qualifiers: Laterality: unspecified laterality Qualified Code(s): H81.10 - Benign paroxysmal vertigo, unspecified ear (2) Dizziness SNOMED Code(s): 448161362 Code(s): R42 - DIZZINESS AND GIDDINESS Status: Acute Priority: High Current Visit: Yes (3) Atrial fib/flutter, transient SNOMED Code(s): 593858124 Code(s): LVC8812 - Status: Chronic Priority: Medium Current Visit: Yes (4) Atrial fibrillation SNOMED Code(s): 16477178 Code(s): I48.91 - UNSPECIFIED ATRIAL FIBRILLATION Status: Chronic Priority: Medium Current Visit: Yes Qualifiers: Atrial fibrillation type: unspecified Qualified Code(s): I48.91 - Unspecified atrial fibrillation (5) Diabetes mellitus type 2, diet-controlled SNOMED Code(s): 60052389 Code(s): E11.9 - TYPE 2 DIABETES MELLITUS WITHOUT COMPLICATIONS Status: Chronic Priority: Medium Current Visit: Yes (6) Acute labyrinthitis SNOMED Code(s): 10591872 Code(s): H83.09 - LABYRINTHITIS, UNSPECIFIED EAR Status: Acute Priority: High Current Visit: Yes Qualifiers: Laterality: unspecified laterality Qualified Code(s): H83.09 - Labyrinthitis, unspecified ear - Problem List Review Problem List Initiated/Reviewed/Updated: Yes - My Orders Last 24 Hours: My Active Orders 11/12/17 17:00 Pantoprazole [ProTONIX] 40 mg PO ACBREAKFAST 11/13/17 09:48 Admission Status [Patient Status] [ADT] Routine 11/13/17 14:00 Patient's Own Medication [Ptom] 1 each PO DAILY@1400 11/14/17 05:11 BASIC METABOLIC PANEL,BMP [CHEM] AM CBC WITH AUTO DIFF [HEME] AM 11/14/17 05:30 INR,PT,PROTHROMBIN TIME [COAG] DAILY 11/14/17 09:00 predniSONE 60 mg PO DAILY 11/15/17 05:30 INR,PT,PROTHROMBIN TIME [COAG] DAILY - Plan Plan:: 87 yo female admitted 11/11/17 for dizziness suspected BPPV with pmh of a-fib/ flutter on coumadin, htn, hyperlipidemia, and type II diabetes. Dizziness: I believe this more of a acute labrinthitis type of picture now. Started patient on prednisone yesterday 60 mg po daily x 5 days, 40 mg day 6, 30 mg day 7, 20mg day 8, 10 mg day 9, 5 mg day 10. Patient states she is feeling much better today and vertigo has improved greatly. Still unsteady on her own but no nausea or vomiting. Will switch to inpatient today but if continued improvement may be able to home with son tomorrow. Zofran for nausea. Hyponatremia: Most likely to several episodes of vomiting yesterday which has resolved. Patient is asymptomatic. Will monitor today and reaccess tomorrow. Will consider IV NS bolus. a-fib/flutter: Telemetery on Coumadin rate controlled. htn: stable cont home meds. hyperlipidemia: Stable cont. home meds. Diabetes: Not on home medications and suspect diet controlled cont. ISS low while in house. VTE: SCD on Coumadin Dispo: Tomorrow pending.
[2017-11-13] MEDS ORDERED: WARFARIN 1 MG PO SCH (14:00)
[2017-11-13] MEDS ORDERED: predniSONE 20 MG Tab PO ONE (23:35)
[2017-11-13] MEDS ORDERED: predniSONE 20 MG Tab ONE (23:42)
[2017-11-14] MEDS: Erythromycin Base 0.5% Ophth Oint 1 GM Tube EYEBOTH SCH (01:18)
[2017-11-14] MEDS: Pantoprazole 40 MG Tab.CR PO SCH (06:47)
[2017-11-14 06:59] LABS: CHLORIDE,CL 89 mmol/L (98-110); SODIUM,NA 125 mmol/L (136-146)
[2017-11-14] MEDS: Insulin Aspart 100 Units/ML 3 ML Pen SUBCUT SCH ×3 (07:38→17:51)
[2017-11-14] MEDS ORDERED: WARFARIN 1 MG PO SCH (08:34)
[2017-11-14] MEDS ORDERED: POTASSIUM 20 MEQ PO SCH ×2 (08:45→17:00)
[2017-11-14] MEDS ORDERED: predniSONE 10 MG Tab PO SCH (09:00)
[2017-11-14] MEDS ORDERED: DIGOXIN 0.125 MG PO SCH (09:00)
[2017-11-14] MEDS ORDERED: FUROSEMIDE 40 MG PO SCH (09:00)
[2017-11-14] MEDS ORDERED: ROSUVASTATIN 10 MG PO SCH (09:00)
[2017-11-14] MEDS ORDERED: METOPROLOL 50 MG PO SCH (09:00)
[2017-11-14] MEDS ORDERED: LOSARTAN/HCTZ 100/25 PO SCH (09:00)
[2017-11-14] MEDS ORDERED: predniSONE 20 MG Tab PO SCH (09:45)
[2017-11-14] MEDS: POTASSIUM 20 MEQ PO SCH ×2 (09:47→17:51)
--- NOTE | 2017-11-14 09:56 | PCM.DCSUM1 ---
Discharge Summary - Hospital Course HPI Initial Comments: 87 yo female admitted 11/11/17 for dizziness suspected BPPV vs Labrinthitis with pmh of a-fib/flutter on coumadin, htn, hyperlipidemia, and type II diabetes. Brief History: Patient presented to ED after she woke on day of admission and had difficulty getting up. Described a "room spinning" type of feeling without weakness. Stated she sat on the edge of her bed and did not think she would be able to stand up. She had some associated nausea without vomiting. She denied weakness, slurring of speach, headache, syncopal event, or other focal neurologic deficits. She denied any chest pain, sob, or recent trauma. She recently was seen, previous Tuesday by Dr. Pinto who diagnosed her with a UTI. She was treated with abx for 3 days and reported complete resolution of symptoms. She did report some sore throat and fatigue for several days before admission. The patient had receive her influenza vaccine this year and influenza swab was negative. - Discharge Data Discharge Date: 11/14/17 Discharge Disposition: Home, Self-Care 01 Condition: Good - Discharge Diagnosis/Problem(s) (1) BPPV (benign paroxysmal positional vertigo) SNOMED Code(s): 387214693 ICD Code: H81.10 - BENIGN PAROXYSMAL VERTIGO, UNSPECIFIED EAR Status: Suspected Priority: High Current Visit: Yes Qualifiers: Laterality: unspecified laterality Qualified Code(s): H81.10 - Benign paroxysmal vertigo, unspecified ear (2) Dizziness SNOMED Code(s): 504094573 ICD Code: R42 - DIZZINESS AND GIDDINESS Status: Resolved Priority: High Current Visit: Yes (3) Atrial fib/flutter, transient SNOMED Code(s): 525742883 ICD Code: [id number] - Status: Chronic Priority: Medium Current Visit: Yes (4) Atrial fibrillation SNOMED Code(s): 16523360 ICD Code: I48.91 - UNSPECIFIED ATRIAL FIBRILLATION Status: Chronic Priority: Medium Current Visit: Yes Qualifiers: Atrial fibrillation type: unspecified Qualified Code(s): I48.91 - Unspecified atrial fibrillation (5) Diabetes mellitus type 2, diet-controlled SNOMED Code(s): 84553304 ICD Code: E11.9 - TYPE 2 DIABETES MELLITUS WITHOUT COMPLICATIONS Status: Chronic Priority: Medium Current Visit: Yes (6) Acute labyrinthitis SNOMED Code(s): 38463619 ICD Code: H83.09 - LABYRINTHITIS, UNSPECIFIED EAR Status: Acute Priority : High Current Visit: Yes Qualifiers: Laterality: unspecified laterality Qualified Code(s): H83.09 - Labyrinthitis, unspecified ear - Patient Summary/Data Hospital Course: In ED CBC,CMP,CXR, were unremarkable. CT head showed no acute intracranial abnormalities. Patient will be admitted for observation. On day 2 of her admission an Eply manuever was preformed without significant improvement of her symptoms. That evening she was started on prednisone for suspected labrynitis. The following morning she had improved greatly. Nausea had resolved and vertigo was vastly improved. On day 3 of her admission patient was ambulating on her own and was discharged in good condition she was prescribed prednisone and protonix for GI protection. She was also scheduled to follow-up with her PCP Dr. Pratt in 1 wk and return to ED if symptoms resolve. - Patient Instructions Diet: Heart Healthy Diet, Diabetic Diet Activity: Rest and Relax Today Driving: Do Not Drive Showering/Bathing: May Shower Notify Provider of: Fever, Increased Pain, Nausea and/or Vomiting - Discharge Plan Prescriptions/Med Rec: Pantoprazole [ProTONIX] 40 mg PO ACBREAKFAST #10 tab.cr Prednisone [IJD: predniSONE] 60 mg PO DAILY #11 tablet Home Medications: Home Meds Digoxin 125 mcg PO DAILY 02/16/16 [History] Erythromycin Base [Erythromycin 0.5% Ophth Oint] 1 applic OP Q12H 02/16/16 [ History] Furosemide [Lasix] 40 mg PO DAILY 02/16/16 [History] Losartan/Hydrochlorothiazide [Losartan-HCTZ 100-25 MG] 1 each PO DAILY 02/16/16 [History] Meclizine [Antivert] 25 mg PO Q6H PRN #30 tablet 02/16/16 [Rx] Metoprolol Succinate [Toprol XL 50mg] 50 mg PO DAILY 02/16/16 [History] Potassium Chloride 20 meq PO DAILY 02/16/16 [History] Rosuvastatin [Crestor] 20 mg PO DAILY 02/16/16 [History] Warfarin Sodium [Jantoven] 1 mg PO DAILY 02/16/16 [History] Pantoprazole [ProTONIX] 40 mg PO ACBREAKFAST #10 tab.cr 11/14/17 [Rx] Prednisone [IJD: predniSONE] 60 mg PO DAILY #11 tablet 11/14/17 [Rx] Referrals: Blasie Merritt MD [Physician] - - Discharge Summary/Plan Comment DC Time >30 min.: Yes Discharge Summary/Plan Comment: 87 yo female admitted 11/11/17 for dizziness suspected BPPV vs Labrinthitis with pmh of a-fib/flutter on coumadin, htn, hyperlipidemia, and type II diabetes. Patient presented to ED after she woke on day of admission and had difficulty getting up. Described a "room spinning" type of feeling without weakness. Stated she sat on the edge of her bed and did not think she would be able to stand up. She had some associated nausea without vomiting. She denied weakness, slurring of speach, headache, syncopal event, or other focal neurologic deficits. She denied any chest pain, sob, or recent trauma. She recently was seen, previous Tuesday by Dr. Pinto who diagnosed her with a UTI. She was treated with abx for 3 days and reported complete resolution of symptoms. She did report some sore throat and fatigue for several days before admission. The patient had receive her influenza vaccine this year and influenza swab was negative. In ED CBC,CMP,CXR, were unremarkable. CT head showed no acute intracranial abnormalities. Patient will be admitted for observation. On day 2 of her admission an Eply manuever was preformed without significant improvement of her symptoms. That evening she was started on prednisone for suspected labrynitis. The following morning she had improved greatly. Nausea had resolved and vertigo was vastly improved. On day 3 of her admission patient was ambulating on her own and was discharged in good condition she was prescribed prednisone and protonix for GI protection. She was also scheduled to follow-up with her PCP Dr. Pratt in 1 wk and return to ED if symptoms resolve. 1. Labrynithitis: Prednisone 10 day treatment: 60 mg x1 5 days, 40 mg x1 day, 30 mg x1 day, 30 mg x1 day, 20 mg x1 day, 10 mg x1 day. Protonix 40 mg daily for GI protection while on steroids. 2. Will need to have her INR checked on Tuesday secondary to steroids. Held on day of discharge. 3. Recommend PCP evaluate sugars as mildly elevated during her stay. - General Info Date of Service: 11/14/17 Admission Dx/Problem (Free Text: Dizziness Subjective Update: Doing well this morning. No n/v. Vertigo vastly improved. Eating and eliminating without difficulty. - Review of Systems General: Denies: Fever, Weakness, Fatigue HEENT: Denies: Headaches, Visual Changes Pulmonary: Denies: Shortness of Breath, Pleuritic Chest Pain Cardiovascular: Denies: Chest Pain, Palpitations, Edema Gastrointestinal: Denies: Abdominal Pain, Constipation, Nausea, Vomiting Genitourinary: Denies: Dysuria, Hematuria Musculoskeletal: Denies: Neck Pain, Leg Pain Skin: Denies: Cyanosis Neurological: Denies: Confusion, Dizziness Psychiatric: Denies: Confusion - Patient Data Vitals - Most Recent: Last Vital Signs Temp 97.3 F 11/14/17 07:52 Pulse 83 11/14/17 09:48 Resp 18 11/14/17 07:52 BP 125/60 11/14/17 09:48 Pulse Ox 94 L 11/14/17 07:52 Weight - Most Recent: 55.9 kg I&O - Last 24 hours: Intake & Output 11/13/17 11/14/17 11/14/17 22:59 06:59 14:59 Intake Total 300 Output Total 450 Balance -150 Lab Results - Last 24 hrs: Laboratory Results - last 24 hr 11/13/17 11/13/17 11/14/17 Range/Units 11:22 16:46 06:07 WBC 7.70 (4.0-11.0) K/uL RBC 4.62 (4.30-5.90) M/uL Hgb 14.2 (12.0-16.0) g/dL Hct 40.6 (36.0-46.0) % MCV 87.9 (80.0-98.0) fL MCH 30.7 (27.0-32.0) pg MCHC 35.0 (31.0-37.0) g/dL RDW Std Deviation 41.9 (28.0-62.0) fl RDW Coeff of Minnie 13 (11.0-15.0) % Plt Count 178 (150-400) K/uL MPV 11.20 (7.40-12.00) fL Neut % (Auto) 80.9 H (48.0-80.0) % Lymph % (Auto) 15.3 L (16.0-40.0) % [place] % (Auto) 3.4 (0.0-15.0) % Eos % (Auto) 0.4 (0.0-7.0) % Baso % (Auto) 0.0 (0.0-1.5) % Neut # (Auto) 6.2 H (1.4-5.7) K/uL Lymph # (Auto) 1.2 (0.6-2.4) K/uL [place] # (Auto) 0.3 (0.0-0.8) K/uL Eos # (Auto) 0.0 (0.0-0.7) K/uL Baso # (Auto) 0.0 (0.0-0.1) K/uL Nucleated RBC % 0.0 /100WBC Nucleated RBCs # 0 K/uL INR (0.86-1.11) Sodium (136-146) mmol/L Potassium (3.5-5.1) mmol/L Chloride (98-110) mmol/L Carbon Dioxide (21-31) mmol/L BUN (6.0-23.0) mg/dL Creatinine (0.6-1.5) mg/dL Est Cr Clr Drug Dosing mL/min Estimated GFR (MDRD) ml/min Glucose (60-110) mg/dL POC Glucose 244 H 276 H (60-110) mg/dL Calcium (8.8-10.8) mg/dL 11/14/17 11/14/17 11/14/17 Range/Units 06:07 06:07 06:46 WBC (4.0-11.0) K/uL RBC (4.30-5.90) M/uL Hgb (12.0-16.0) g/dL Hct (36.0-46.0) % MCV (80.0-98.0) fL MCH (27.0-32.0) pg MCHC (31.0-37.0) g/dL RDW Std Deviation (28.0-62.0) fl RDW Coeff of Minnie (11.0-15.0) % Plt Count (150-400) K/uL MPV (7.40-12.00) fL Neut % (Auto) (48.0-80.0) % Lymph % (Auto) (16.0-40.0) % [place] % (Auto) (0.0-15.0) % Eos % (Auto) (0.0-7.0) % Baso % (Auto) (0.0-1.5) % Neut # (Auto) (1.4-5.7) K/uL Lymph # (Auto) (0.6-2.4) K/uL [place] # (Auto) (0.0-0.8) K/uL Eos # (Auto) (0.0-0.7) K/uL Baso # (Auto) (0.0-0.1) K/uL Nucleated RBC % /100WBC Nucleated RBCs # K/uL INR 3.26 H (0.86-1.11) Sodium 125 L (136-146) mmol/L Potassium 4.0 (3.5-5.1) mmol/L Chloride 89 L (98-110) mmol/L Carbon Dioxide 25 (21-31) mmol/L BUN 22 (6.0-23.0) mg/dL Creatinine 0.8 (0.6-1.5) mg/dL Est Cr Clr Drug Dosing 43.72 mL/min Estimated GFR (MDRD) > 60.0 ml/min Glucose 256 H (60-110) mg/dL POC Glucose 228 H (60-110) mg/dL Calcium 10.3 (8.8-10.8) mg/dL Med Orders - Current: Current Medications Acetaminophen (Tylenol) 650 mg PO Q4H PRN PRN Reason: Pain (Mild 1-3)/fever Last Admin: 11/11/17 20:34 Dose: 650 mg Digoxin (Lanoxin) 125 mcg PO DAILY [facility] Last Admin: 11/14/17 09:47 Dose: 125 mcg Erythromycin (Erythromycin 0.5% Ophth Oint) 1 gm EYEBOTH BID@0800,2000 [facility] Furosemide (Lasix) 40 mg PO DAILY [facility] Last Admin: 11/14/17 09:47 Dose: 40 mg HCTZ/Losartan Potassium (Hyzaar 50-12.5 Mg) 2 tab PO DAILY [facility] Last Admin: 11/14/17 09:47 Dose: 2 tab Insulin Aspart (Novolog) 0 unit SUBCUT TIDAC [facility] PRN Reason: Protocol Last Admin: 11/14/17 07:38 Dose: 2 unit Meclizine HCl (Antivert) 25 mg PO Q6H PRN PRN Reason: Dizziness Metoprolol Succinate (Toprol Xl) 50 mg PO DAILY [facility] Last Admin: 11/14/17 09:48 Dose: 50 mg Ondansetron HCl (Zofran Odt) 4 mg PO Q4H PRN PRN Reason: nausea, able to take PO Ondansetron HCl (Zofran) 4 mg IVPUSH Q4H PRN PRN Reason: Nausea Last Admin: 11/12/17 10:36 Dose: 4 mg Pantoprazole Sodium (Protonix) 40 mg PO ACBREAKFAST [facility] Last Admin: 11/14/17 06:47 Dose: 40 mg Potassium Chloride (Klor-Con M20) 20 meq PO BID@0800,1700 [facility] Last Admin: 11/14/17 09:47 Dose: Not Given Prednisone (Prednisone) 60 mg PO DAILY [facility] Rosuvastatin Calcium (Crestor) 10 mg PO DAILY [facility] Last Admin: 11/14/17 09:47 Dose: 10 mg Warfarin Sodium (Coumadin) 1 mg PO DAILY@1400 [facility] Discontinued Medications Erythromycin (Erythromycin 0.5% Ophth Oint) 1 gm EYEBOTH Q12H [facility] Last Admin: 11/14/17 01:18 Dose: Not Given Sodium Chloride (Normal Saline) 1,000 mls @ 200 mls/hr IV STAT ONE Stop: 11/11/17 15:59 Last Admin: 11/11/17 11:27 Dose: 200 mls/hr Digoxin 0.125 Mg 1 each PO DAILY [facility] Last Admin: 11/13/17 09:49 Dose: 1 each Furosemide 40 Mg 1 each PO DAILY [facility] Last Admin: 11/13/17 09:49 Dose: 1 each Losartan/Hctz 100/25 1 each PO DAILY [facility] Last Admin: 11/13/17 09:49 Dose: 1 each Metoprolol Er 50 Mg 1 each PO DAILY [facility] Last Admin: 11/13/17 09:49 Dose: 1 each Potassium 20 Meq 1 each PO BID [facility] Last Admin: 11/13/17 21:59 Dose: Not Given Rosuvastatin 10 Mg 1 each PO DAILY [facility] Last Admin: 11/13/17 09:49 Dose: 1 each Warfarin 1 Mg 2 each PO DAILY@1400 [facility] Last Admin: 11/12/17 14:18 Dose: 2 each Warfarin 1 Mg 1 each PO DAILY@1400 [facility] Last Admin: 11/13/17 17:33 Dose: Not Given Potassium Chloride (Klor-Con M20) 1 meq PO BID@0800,1700 [facility] Potassium Chloride (Klor-Con M20) 20 meq PO BID@0800,1700 [facility] Prednisone (Prednisone) 60 mg PO ONETIME ONE Stop: 11/12/17 16:51 Last Admin: 11/12/17 17:33 Dose: 60 mg Prednisone (Prednisone) 60 mg PO DAILY [facility] Prednisone (Prednisone) 60 mg PO ONETIME ONE Stop: 11/14/17 23:36 Prednisone (Prednisone) Confirm Administered Dose 60 mg .ROUTE .STK-MED ONE Stop: 11/13/17 23:43 Last Admin: 11/13/17 23:47 Dose: Not Given Prednisone (Prednisone) 60 mg PO ONETIME ONE Stop: 11/13/17 23:36 Last Admin: 11/13/17 23:58 Dose: 60 mg Warfarin Sodium (Coumadin) 1 mg PO DAILY@1400 [facility] Last Admin: 11/11/17 15:15 Dose: Not Given Warfarin Sodium (Coumadin) 1 mg PO DAILY@1400 [facility] - Exam Quality Assessment: Reports: DVT Prophylaxis General: Reports: Alert, Oriented, Cooperative HEENT: Reports: Pupils Equal, Pupils Reactive, EOMI, Mucous Membr. Moist/[place] Neck: Reports: Supple Lungs: Reports: Clear to Auscultation, Normal Respiratory Effort Cardiovascular: Reports: Regular Rate, Regular Rhythm, Murmurs GI/Abdominal Exam: Normal Bowel Sounds, Soft, Non-Tender, No Organomegaly, No Distention Back Exam: Reports: Normal Inspection Extremities: Normal Inspection, Non-Tender, No Pedal Edema, Normal Capillary Refill Skin: Reports: Warm, Dry, Intact Neurological: Reports: No New Focal Deficit Psy/Mental Status: Reports: Alert, Normal Affect, Normal Mood *Q Meaningful Use (DIS) - VTE *Q VTE Criteria *Q: - Stroke *Q Stroke Criteria *Q: - AMI *Q AMI Criteria *Q:
[2017-11-14 16:19] VITALS: BP 136/70
[2017-11-14] MEDS ORDERED: Erythromycin Base 0.5% Ophth Oint 1 GM Tube EYEBOTH SCH (20:00)
[2017-11-14] MEDS ORDERED: predniSONE 20 MG Tab PO ONE (23:35)
[2017-11-15] MEDS ORDERED: WARFARIN 1 MG PO SCH (14:00)
== END 2017-11-14 18:05 | disposition home or self-care (01) | DRG 149 ==
LOC: MW.ED 10:23 → MW.MS 12:57 → OBSVTOIN 11-13 09:48
PROVIDERS: ADMIT Family Medicine; ATTEND Family Medicine
DX: R42 Dizziness and giddiness (principal); H81.10 Benign paroxysmal vertigo, unspecified ear; I50.9 Heart failure, unspecified; E87.1 Hypo-osmolality and hyponatremia; I48.91 Unspecified atrial fibrillation; I10 Essential (primary) hypertension; E78.5 Hyperlipidemia, unspecified; E11.9 Type 2 diabetes mellitus without complications; H83.09 Labyrinthitis, unspecified ear; Z79.01 Long term (current) use of anticoagulants; Z79.899 Other long term (current) drug therapy
CPT/HCPCS: 36415 ×3; 70450; 71010; 80048 ×2; 80053; 81001; 82962 ×5; 84484; 85025 ×3; 85610 ×3; 87081; 87804 ×2; 87880; 93005; 96360; 96361; 97162; 99285; A9270 ×5; J1815; J2405; J7040; 96374; 99284; G0378

== ENCOUNTER 2019-07-25 10:41 | Emergency (ER) | payer MEDICARE, BC ==
[2019-07-25] MEDS ORDERED: Sodium Chloride 0.9% 10 ML Syringe FLUSH PRN (10:42)
[2019-07-25] MEDS ORDERED: Sodium Chloride 0.9% 2.5 ML Syringe FLUSH PRN (10:42)
[2019-07-25] MEDS ORDERED: Sodium Chloride 0.9% 10 ML SDV IV PRN (10:42)
--- NOTE | 2019-07-25 10:46 | EDM.PDOC ---
ED HPI GENERAL MEDICAL PROBLEM - General Stated Complaint: STROKE Time Seen by Provider: 07/25/19 10:42 Source of Information: Reports: Patient History Limitations: Reports: No Limitations - History of Present Illness INITIAL COMMENTS - FREE TEXT/NARRATIVE: HISTORY AND PHYSICAL: History of present illness: Patient is an 88-year-old female presents to the ED today with concern of an episode of sensation of feeling warm when she was sleeping last night and tingling in both of her feet when she woke up. Daughter is with patient today in the ED who states that during this episode she was with her mom and noticed that she had some drooping on the right side of her mouth. Upon arrival to the ED daughter states that the drooping is completely resolved and does not notice any other symptoms. Patient has a history of type 2 diabetes Patient denies fever, chills, chest pain, shortness of breath, or cough. Denies headache, neck stiff ness, change in vision, syncope, or near syncope. Denies nausea, vomiting, abdominal pain, diarrhea, constipation, or dysuria. Has not noted any blood in urine or stool. Patient has been eating and drinking appropriately. Review of systems: As per history of present illness and below otherwise all systems reviewed and negative. Past medical history: As per history of present illness and as reviewed below otherwise noncontributory. Surgical history: As per history of present illness and as reviewed below otherwise noncontributory. Social history: See social history for further information Family history: As per history of present illness and as reviewed below otherwise noncontributory. Physical exam: General: Patient is alert, oriented, and in no acute distress. Patient sitting comfortably on exam table. HEENT: Atraumatic, normocephalic, pupils equal and reactive bilaterally, negative for conjunctival pallor or scleral icterus, mucous membranes moist, TMs normal bilaterally, throat clear, neck supple, nontender, trachea midline. No drooling or trismus noted. No meningeal signs. No hot potato voice noted. Lungs: Clear to auscultation, breath sounds equal bilaterally, chest nontender. Heart: S1S2, regular rate and rhythm without overt murmur Abdomen: Soft, nondistended, nontender. Negative for masses or hepatosplenomegaly. Negative for costovertebral tenderness. Pelvis: Stable nontender. Genitourinary: Deferred. Rectal: Deferred. Skin: Intact, warm, dry. No lesions or rashes noted. Extremities: Atraumatic, negative for cords or calf pain. Neurovascular unremarkable. Neuro: Awake, alert, oriented. Cranial nerves II through XII unremarkable. Cerebellum unremarkable. Motor and sensory unremarkable throughout. Exam nonfocal. Notes: Stroke code was called upon arrival to the ED. NIH score 0. GCS 15. Admission for observation was offered to patient but she adamantly declines requesting discharge. All risks versus benefits discussed with patient and her daughter and both express understanding. Patient states she has an appointment today at [address] Jones and does not desire to change her dosing until then. Discussed all risks vs benefits with patient and expresses understanding. Patient discharged with signing AMA form. Denies any further questions or concerns at this time. Diagnostics: CBC, CMP, UA, EKG, chest x-ray, troponin, TSH, bedside glucose, PT/INR, PTT, head CT Therapeutics: None Prescription: None Impression: TIA Atrial fibrillation Subtherapeutic INR Hypercalcemia Against Medical Advice Plan: 1. Follow up with her primary care provider as scheduled today and as discussed. 2. You can use Tylenol as directed for pain and discomfort. Return to the ED as needed and as discussed. Definitive disposition and diagnosis as appropriate pending reevaluation and review of above. - Related Data Allergies Allergy/AdvReac Type Severity Reaction Status Date / Time topical sporins Allergy Other Uncoded 07/25/19 11:03 Home Meds: Home Meds Digoxin 125 mcg PO DAILY 02/16/16 [History] Erythromycin Base [Erythromycin 0.5% Ophth Oint] 1 applic OP Q12H 02/16/16 [ History] Furosemide [Lasix] 40 mg PO DAILY 02/16/16 [History] Losartan/Hydrochlorothiazide [Losartan-HCTZ 100-25 MG] 1 each PO DAILY 02/16/16 [History] Metoprolol Succinate [Toprol XL 50mg] 50 mg PO DAILY 02/16/16 [History] Potassium Chloride 20 meq PO DAILY 02/16/16 [History] Rosuvastatin [Crestor] 10 mg PO DAILY 02/16/16 [History] Warfarin Sodium [Jantoven] 1 mg PO DAILY 02/16/16 [History] Past Medical History HEENT History: Reports: None Cardiovascular History: Reports: Afib, Heart Failure, Hypertension Respiratory History: Reports: None Gastrointestinal History: Reports: None Genitourinary History: Reports: None [employer] History: Reports: Musculoskeletal History: Reports: None Neurological History: Reports: None Psychiatric History: Reports: Anxiety Endocrine/Metabolic History: Reports: Diabetes, Type II Hematologic History: Reports: None Immunologic History: Reports: None Oncologic (Cancer) History: Reports: None Dermatologic History: Reports: None - Infectious Disease History Infectious Disease History: Reports: Chicken Pox, Measles - Past Surgical History Head Surgeries/Procedures: Reports: None HEENT Surgical History: Reports: None Cardiovascular Surgical History: Reports: None Respiratory Surgical History: Reports: None GI Surgical History: Reports: None Female Surgical History: Reports: Breast Biopsy Endocrine Surgical History: Reports: None Neurological Surgical History: Reports: None Musculoskeletal Surgical History: Reports: None Oncologic Surgical History: Reports: None Dermatological Surgical History: Reports: None Social & Family History - Family History Family Medical History: Noncontributory - Caffeine Use Caffeine Use: Reports: None ED ROS GENERAL - Review of Systems Review Of Systems: ROS reveals no pertinent complaints other than HPI. ED EXAM, GENERAL - Physical Exam Exam: See Below (See dictation) Course - Vital Signs Last Recorded V/S: Last Vital Signs Temp 36.1 C 07/25/19 11:03 Pulse 111 H 07/25/19 11:03 Resp 18 07/25/19 11:03 BP 153/62 H 07/25/19 11:03 Pulse Ox 96 07/25/19 11:03 - Orders/Labs/Meds Orders: Active Orders 24 hr Category Date Time Status Assess Neurological Status [RC] ASDIRECTED Care 07/25/19 10:43 Active Bedrest [RC] ASDIRECTED Care 07/25/19 10:43 Active Cardiac Monitoring [RC] . DIRECTED Care 07/25/19 10:43 Active EKG Documentation Completion [RC] STAT Care 07/25/19 10:43 Active Glucose [Blood Glucose Check, Bedside] [RC] ONETIME Care 07/25/19 10:46 Active Height and Weight [RC] UPON Care 07/25/19 10:43 Active Initiate Acute Stroke Protocol [RC] STAT Care 07/25/19 10:43 Active NIH Stroke Scale [RC] ASDIRECTED Care 07/25/19 10:43 Active Nursing Bedside Swallow Screen [RC] ASDIRECTED Care 07/25/19 10:43 Active Oxygen Therapy [RC] ASDIRECTED Care 07/25/19 10:43 Active Vital Signs [RC] Q15M Care 07/25/19 10:43 Active Peripheral IV Insertion Adult [OM.PC] Stat Oth 07/25/19 10:43 Ordered Labs: Laboratory Tests 07/25/19 07/25/19 07/25/19 Range/Units 10:45 10:45 10:45 WBC 8.51 (4.0-11.0) K/uL RBC 5.03 (4.30-5.90) M/uL Hgb 15.6 (12.0-16.0) g/dL Hct 45.0 (36.0-46.0) % MCV 89.5 (80.0-98.0) fL MCH 31.0 (27.0-32.0) pg MCHC 34.7 (31.0-37.0) g/dL RDW Std Deviation 42.2 (28.0-62.0) fl RDW Coeff of Minnie 13 (11.0-15.0) % Plt Count 202 (150-400) K/uL MPV 10.50 (7.40-12.00) fL Neut % (Auto) 66.5 (48.0-80.0) % Lymph % (Auto) 19.4 (16.0-40.0) % [place] % (Auto) 13.0 (0.0-15.0) % Eos % (Auto) 0.9 (0.0-7.0) % Baso % (Auto) 0.2 (0.0-1.5) % Neut # (Auto) 5.7 (1.4-5.7) K/uL Lymph # (Auto) 1.7 (0.6-2.4) K/uL [place] # (Auto) 1.1 H (0.0-0.8) K/uL Eos # (Auto) 0.1 (0.0-0.7) K/uL Baso # (Auto) 0.0 (0.0-0.1) K/uL Nucleated RBC % 0.0 /100WBC Nucleated RBCs # 0 K/uL INR 1.83 APTT 33.7 H (18.6-31.3) SEC Sodium 134 L (136-145) mmol/L Potassium 3.9 (3.5-5.1) mmol/L Chloride 96 L (98-107) mmol/L Carbon Dioxide 26.9 (21.0-32.0) mmol/L BUN 16 (7.0-18.0) mg/dL Creatinine 0.7 (0.6-1.0) mg/dL Est Cr Clr Drug Dosing 47.74 mL/min Estimated GFR (MDRD) > 60.0 ml/min Glucose 243 H (74-106) mg/dL Calcium 11.3 H (8.5-10.1) mg/dL Total Bilirubin 1.2 H (0.2-1.0) mg/dL AST 33 (15-37) IU/L ALT 44 (14-63) IU/L Alkaline Phosphatase 56 (46-116) U/L Troponin I < 0.050 (0.000-0.056) ng/mL Total Protein 7.7 (6.4-8.2) g/dL Albumin 4.1 (3.4-5.0) g/dL Globulin 3.6 (2.6-4.0) g/dL Albumin/Globulin Ratio 1.1 (0.9-1.6) TSH 3rd Generation 3.66 (0.36-3.74) uIU/mL Urine Color Urine Appearance Urine pH (5.0-8.0) Ur Specific [place] (1.001-1.035) Urine Protein (NEGATIVE) mg/dL Urine Glucose (UA) (NEGATIVE) mg/dL Urine Ketones (NEGATIVE) mg/dL Urine Occult Blood (NEGATIVE) Urine Nitrite (NEGATIVE) Urine Bilirubin (NEGATIVE) Urine Urobilinogen (<2.0) EU/dL Ur Leukocyte Esterase (NEGATIVE) 07/25/19 Range/Units 11:35 WBC (4.0-11.0) K/uL RBC (4.30-5.90) M/uL Hgb (12.0-16.0) g/dL Hct (36.0-46.0) % MCV (80.0-98.0) fL MCH (27.0-32.0) pg MCHC (31.0-37.0) g/dL RDW Std Deviation (28.0-62.0) fl RDW Coeff of Minnie (11.0-15.0) % Plt Count (150-400) K/uL MPV (7.40-12.00) fL Neut % (Auto) (48.0-80.0) % Lymph % (Auto) (16.0-40.0) % [place] % (Auto) (0.0-15.0) % Eos % (Auto) (0.0-7.0) % Baso % (Auto) (0.0-1.5) % Neut # (Auto) (1.4-5.7) K/uL Lymph # (Auto) (0.6-2.4) K/uL [place] # (Auto) (0.0-0.8) K/uL Eos # (Auto) (0.0-0.7) K/uL Baso # (Auto) (0.0-0.1) K/uL Nucleated RBC % /100WBC Nucleated RBCs # K/uL INR APTT (18.6-31.3) SEC Sodium (136-145) mmol/L Potassium (3.5-5.1) mmol/L Chloride (98-107) mmol/L Carbon Dioxide (21.0-32.0) mmol/L BUN (7.0-18.0) mg/dL Creatinine (0.6-1.0) mg/dL Est Cr Clr Drug Dosing mL/min Estimated GFR (MDRD) ml/min Glucose (74-106) mg/dL Calcium (8.5-10.1) mg/dL Total Bilirubin (0.2-1.0) mg/dL AST (15-37) IU/L ALT (14-63) IU/L Alkaline Phosphatase (46-116) U/L Troponin I (0.000-0.056) ng/mL Total Protein (6.4-8.2) g/dL Albumin (3.4-5.0) g/dL Globulin (2.6-4.0) g/dL Albumin/Globulin Ratio (0.9-1.6) TSH 3rd Generation (0.36-3.74) uIU/mL Urine Color YELLOW Urine Appearance CLEAR Urine pH 7.0 (5.0-8.0) Ur Specific [place] 1.010 (1.001-1.035) Urine Protein NEGATIVE (NEGATIVE) mg/dL Urine Glucose (UA) NEGATIVE (NEGATIVE) mg/dL Urine Ketones NEGATIVE (NEGATIVE) mg/dL Urine Occult Blood NEGATIVE (NEGATIVE) Urine Nitrite NEGATIVE (NEGATIVE) Urine Bilirubin NEGATIVE (NEGATIVE) Urine Urobilinogen 0.2 (<2.0) EU/dL Ur Leukocyte Esterase NEGATIVE (NEGATIVE) Meds: Medications Discontinued Medications Generic Name Dose Route Start Last Admin Trade Name Freq PRN Reason Stop Dose Admin Sodium Chloride 10 ml 07/25/19 10:42 Saline Flush FLUSH ASDIRECTED PRN Keep Vein Open Sodium Chloride 2.5 ml 07/25/19 10:42 Saline Flush FLUSH ASDIRECTED PRN Keep Vein Open Sodium Chloride 10 ml 07/25/19 10:42 Normal Saline IV ASDIRECTED PRN IV Use Departure - Departure Time of Disposition: 12:42 Disposition: Against Medical Advice 07 Clinical Impression: TIA (transient ischemic attack), Subtherapeutic international normalized ratio (INR), Hypercalcemia, Left against medical advice Atrial fibrillation Qualifiers: Atrial fibrillation type: unspecified Qualified Code(s): I48.91 - Unspecified atrial fibrillation - Discharge Information Referrals: PCP,None [Primary Care Provider] - Forms: ED Department Discharge Additional Instructions: The following information is given to patients seen in the emergency department who are being discharged to home. This information is to outline your options for follow-up care. We provide all patients seen in our emergency department with a follow-up referral. The need for follow-up, as well as the timing and circumstances, are variable depending upon the specifics of your emergency department visit. If you don't have a primary care physician on staff, we will provide you with a referral. We always advise you to contact your personal physician following an emergency department visit to inform them of the circumstance of the visit and for follow-up with them and/or the need for any referrals to a consulting specialist. The emergency department will also refer you to a specialist when appropriate. This referral assures that you have the opportunity for follow-up care with a specialist. All of these measure are taken in an effort to provide you with optimal care, which includes your follow-up. Under all circumstances we always encourage you to contact your private physician who remains a resource for coordinating your care. When calling for follow-up care, please make the office aware that this follow-up is from your recent emergency room visit. If for any reason you are refused follow-up, please contact the [facility] at and asked to speak to the emergency department charge nurse. [facility] [address] [place] [address] [facility] [address] [place] [id number] 1. Follow up with her primary care provider as scheduled today and as discussed. 2. You can use Tylenol as directed for pain and discomfort. Return to the ED as needed and as discussed. - My Orders Last 24 Hours: My Active Orders 07/25/19 10:43 Assess Neurological Status [RC] ASDIRECTED Bedrest [RC] ASDIRECTED Cardiac Monitoring [RC] . DIRECTED EKG Documentation Completion [RC] STAT Height and Weight [RC] UPON Initiate Acute Stroke Protocol [RC] STAT NIH Stroke Scale [RC] ASDIRECTED Nursing Bedside Swallow Screen [RC] ASDIRECTED Oxygen Therapy [RC] ASDIRECTED Vital Signs [RC] Q15M Peripheral IV Insertion Adult [OM.PC] Stat 07/25/19 10:46 Glucose [Blood Glucose Check, Bedside] [RC] ONETIME - Assessment/Plan Last 24 Hours: My Active Orders 07/25/19 10:43 Assess Neurological Status [RC] ASDIRECTED Bedrest [RC] ASDIRECTED Cardiac Monitoring [RC] . DIRECTED EKG Documentation Completion [RC] STAT Height and Weight [RC] UPON Initiate Acute Stroke Protocol [RC] STAT NIH Stroke Scale [RC] ASDIRECTED Nursing Bedside Swallow Screen [RC] ASDIRECTED Oxygen Therapy [RC] ASDIRECTED Vital Signs [RC] Q15M Peripheral IV Insertion Adult [OM.PC] Stat 07/25/19 10:46 Glucose [Blood Glucose Check, Bedside] [RC] ONETIME
--- NOTE | 2019-07-25 11:08 | CT ---
INDICATION: Stroke protocol. Numbness in feet. COMPARISON: Head CT dated 12/21/2018 TECHNIQUE: A CT volumetric acquisition was performed of the brain without IV contrast. FINDINGS: CT images demonstrate stable volume loss within the cerebellum and cerebral hemispheres. There are stable patchy areas of decreased density in the periventricular white matter consistent with age-related small vessel ischemic changes. There is no evidence of a subdural or epidural hematoma. There is no evidence of subarachnoid hemorrhage or intraparenchymal bleeding. The CT images reveal a normal appearance of the cerebral ventricles and basal cisterns. There is no evidence of localized tissue infarction or mass effect. There is normal chavis white matter differentiation. Atherosclerotic vascular calcifications are noted within the vertebrobasilar and carotid arteries. The mastoid air cells and middle ear cavities are clear. The calvarium appears intact. There is normal aeration of the visualized paranasal sinuses. IMPRESSION: No evidence of intracranial hemorrhage, infarct or mass effect. Note: I discussed exam findings with Dr. Peace at the completion of the study on 07/25/2019 at 11:02 a.m. Please note that all CT scans at this facility use dose modulation, iterative reconstruction, and/or weight-based dosing when appropriate to reduce radiation dose to as low as reasonably achievable. Dictated by Edenilson Medina MD @ Jul 25 2019 11:05AM Signed by Dr. Edenilson Medina @ Jul 25 2019 11:06AM
[2019-07-25 11:12] VITALS: BP 153/62
[2019-07-25 11:33] LABS: BLOOD UREA NITROGEN,BUN 16 mg/dL (7.0-18.0); CARBON DIOXIDE,CO2 26.9 mmol/L (21.0-32.0); CHLORIDE,CL 96 mmol/L (98-107); GLUCOSE RANDOM 243 mg/dL (74-106); POTASSIUM,K 3.9 mmol/L (3.5-5.1); SODIUM,NA 134 mmol/L (136-145)
--- NOTE | 2019-07-25 11:51 | CR ---
INDICATION: Dyspnea. TECHNIQUE: Upright portable AP image of the chest. COMPARISON: 12/21/2018. FINDINGS: No significant change. Clear lungs. Mild cardiomegaly. Pulmonary veins normal in caliber. No significant bony abnormality. IMPRESSION: 1. No significant change. Lungs clear. 2. Mild cardiomegaly. Dictated by Scot García MD @ Jul 25 2019 11:46AM Signed by Dr. Scot García @ Jul 25 2019 11:50AM
== END 2019-07-25 12:05 | disposition left against medical advice (07) ==
LOC: MW.ED 10:41
DX: G45.9 Transient cerebral ischemic attack, unspecified (principal); I48.91 Unspecified atrial fibrillation; E83.52 Hypercalcemia; R79.1 Abnormal coagulation profile; I11.0 Hypertensive heart disease with heart failure; I50.9 Heart failure, unspecified; E11.59 Type 2 diabetes mellitus with other circulatory complications; Z91.048 Other nonmedicinal substance allergy status; Z79.01 Long term (current) use of anticoagulants; Z79.899 Other long term (current) drug therapy
CPT/HCPCS: 36415; 70450; 70450-26; 71045; 71045-26; 80053; 81003; 84443; 84484; 85025; 85610; 85730; 93005; 99285-25

== ENCOUNTER 2019-09-12 16:22 | Emergency (ER) | payer MEDICARE, BC ==
--- NOTE | 2019-09-12 16:36 | EDM.PDOC ---
ED HPI GENERAL MEDICAL PROBLEM - General Chief Complaint: Back Pain or Injury Stated Complaint: BACK PAIN UPPER AND LOWER Time Seen by Provider: 09/12/19 16:36 Source of Information: Reports: Patient History Limitations: Reports: No Limitations - History of Present Illness INITIAL COMMENTS - FREE TEXT/NARRATIVE: HISTORY AND PHYSICAL: History of present illness: Patient is an 89-year-old female presents to the ED with complaint of upper back pain. She states she has had pain in the right upper back x 3 days. She denies injury, trauma, or fall. She denies chest pain, shortness of breath, palpitations, fevers, chills, nausea, vomiting, dysuria, hematuria. Review of systems: As per history of present illness and below otherwise all systems reviewed and negative. Past medical history: As per history of present illness and as reviewed below otherwise noncontributory. Surgical history: As per history of present illness and as reviewed below otherwise noncontributory. Social history: No reported history of drug or alcohol abuse. Family history: As per history of present illness and as reviewed below otherwise noncontributory. Physical exam: General: Patient sitting comfortably in no acute distress and nontoxic appearing HEENT: Atraumatic, normocephalic, pupils reactive, negative for conjunctival pallor or scleral icterus, mucous membranes moist, throat clear, neck supple, nontender, trachea midline. No meningeal signs. Lungs: Clear to auscultation, breath sounds equal bilaterally, chest nontender. Heart: S1S2, regular, negative for clicks, rubs, or overt murmur. Abdomen: Soft, nondistended, nontender. Negative for masses or hepatosplenomegaly. Negative for costovertebral tenderness. No rigidity, rebound , guarding. Pelvis: Stable nontender. Genitourinary: Deferred. Rectal: Deferred. Extremities: Atraumatic, negative for cords or calf pain. Neurovascular unremarkable. Neuro: Awake, alert, oriented. Cranial nerves II through XII unremarkable. Cerebellum unremarkable. Motor and sensory unremarkable throughout. Exam nonfocal. Notes: Patient is not having any patient on re-evaluation. no therapeutics given. Diagnostics: CBC, CMP, PT/INR, UA, Chest x-ray Therapeutics: [] Prescriptions: Impression: Back pain Plan: tylenol as needed for pain Follow up with primary care provider Return to ED as needed as discussed Definitive disposition and diagnosis as appropriate pending reevaluation and review of above. Upper Back Pain Score (Numeric/FACES): 8 - Related Data Allergies Allergy/AdvReac Type Severity Reaction Status Date / Time topical sporins Allergy Other Uncoded 09/12/19 16:38 Home Meds: Home Meds Digoxin 125 mcg PO DAILY 02/16/16 [History] Erythromycin Base [Erythromycin 0.5% Ophth Oint] 1 applic OP Q12H 02/16/16 [ History] Furosemide [Lasix] 40 mg PO DAILY 02/16/16 [History] Losartan/Hydrochlorothiazide [Losartan-HCTZ 100-25 MG] 1 each PO DAILY 02/16/16 [History] Metoprolol Succinate [Toprol XL 50mg] 50 mg PO DAILY 02/16/16 [History] Potassium Chloride 20 meq PO DAILY 02/16/16 [History] Rosuvastatin [Crestor] 10 mg PO DAILY 02/16/16 [History] Warfarin Sodium [Jantoven] 1 mg PO DAILY 02/16/16 [History] Past Medical History HEENT History: Reports: None Cardiovascular History: Reports: Afib, Heart Failure, Hypertension Respiratory History: Reports: None Gastrointestinal History: Reports: None Genitourinary History: Reports: None [employer] History: Reports: Musculoskeletal History: Reports: None Neurological History: Reports: None Psychiatric History: Reports: Anxiety Endocrine/Metabolic History: Reports: Diabetes, Type II Hematologic History: Reports: None Immunologic History: Reports: None Oncologic (Cancer) History: Reports: None Dermatologic History: Reports: None - Infectious Disease History Infectious Disease History: Reports: Chicken Pox, Measles - Past Surgical History Head Surgeries/Procedures: Reports: None HEENT Surgical History: Reports: None Cardiovascular Surgical History: Reports: None Respiratory Surgical History: Reports: None GI Surgical History: Reports: None Female Surgical History: Reports: Breast Biopsy Endocrine Surgical History: Reports: None Neurological Surgical History: Reports: None Musculoskeletal Surgical History: Reports: None Oncologic Surgical History: Reports: None Dermatological Surgical History: Reports: None Social & Family History - Family History Family Medical History: Noncontributory - Caffeine Use Caffeine Use: Reports: None ED ROS GENERAL - Review of Systems Review Of Systems: ROS reveals no pertinent complaints other than HPI. ED EXAM, UPPER BACK/NECK PAIN - Physical Exam Exam: See Below (see dictation) Course - Vital Signs Last Recorded V/S: Last Vital Signs Temp 97.2 F 09/12/19 16:35 Pulse 69 09/12/19 17:54 Resp 20 09/12/19 17:54 BP 157/73 H 09/12/19 17:54 Pulse Ox 97 09/12/19 17:54 - Orders/Labs/Meds Orders: Active Orders 24 hr Category Date Time Status EKG Documentation Completion [RC] STAT Care 09/12/19 16:41 Active CULTURE URINE [RM] Stat Lab 09/12/19 16:45 Received Labs: Laboratory Tests 09/12/19 09/12/19 09/12/19 Range/Units 16:45 17:22 17:22 WBC 6.12 (4.0-11.0) K/uL RBC 4.76 (4.30-5.90) M/uL Hgb 14.7 (12.0-16.0) g/dL Hct 42.3 (36.0-46.0) % MCV 88.9 (80.0-98.0) fL MCH 30.9 (27.0-32.0) pg MCHC 34.8 (31.0-37.0) g/dL RDW Std Deviation 42.1 (28.0-62.0) fl RDW Coeff of Minnie 13 (11.0-15.0) % Plt Count 209 (150-400) K/uL MPV 10.00 (7.40-12.00) fL Add Manual Diff YES Neutrophils % (Manual) 69 (48.0-80.0) % Lymphocytes % (Manual) 22 (16.0-40.0) % Monocytes % (Manual) 9 (0.0-15.0) % Nucleated RBC % 0.0 /100WBC Absolute Seg Neuts 4.2 (1.4-5.7) Lymphocytes # (Manual) 1.3 (0.6-2.4) Monocytes # (Manual) 0.6 (0.0-0.8) Nucleated RBCs # 0 K/uL INR Sodium 127 L (136-145) mmol/L Potassium 4.0 (3.5-5.1) mmol/L Chloride 92 L (98-107) mmol/L Carbon Dioxide 23.7 (21.0-32.0) mmol/L BUN 16 (7.0-18.0) mg/dL Creatinine 0.7 (0.6-1.0) mg/dL Est Cr Clr Drug Dosing 46.82 mL/min Estimated GFR (MDRD) > 60.0 ml/min Glucose 137 H (74-106) mg/dL Calcium 10.4 H (8.5-10.1) mg/dL Total Bilirubin 0.8 (0.2-1.0) mg/dL AST 23 (15-37) IU/L ALT 29 (14-63) IU/L Alkaline Phosphatase 50 (46-116) U/L Troponin I < 0.050 (0.000-0.056) ng/mL Total Protein 7.6 (6.4-8.2) g/dL Albumin 4.1 (3.4-5.0) g/dL Globulin 3.5 (2.6-4.0) g/dL Albumin/Globulin Ratio 1.2 (0.9-1.6) Urine Color YELLOW Urine Appearance SLT CLOUDY Urine pH 7.5 (5.0-8.0) Ur Specific [place] 1.015 (1.001-1.035) Urine Protein NEGATIVE (NEGATIVE) mg/dL Urine Glucose (UA) NEGATIVE (NEGATIVE) mg/dL Urine Ketones NEGATIVE (NEGATIVE) mg/dL Urine Occult Blood LARGE H (NEGATIVE) Urine Nitrite NEGATIVE (NEGATIVE) Urine Bilirubin NEGATIVE (NEGATIVE) Urine Urobilinogen 0.2 (<2.0) EU/dL Ur Leukocyte Esterase TRACE H (NEGATIVE) Urine RBC 10-20 (0-2/HPF) Urine WBC 0-2 (0-5/HPF) Ur Epithelial Cells FEW (NONE-FEW) Urine Bacteria FEW (NEGATIVE) 09/12/19 Range/Units 17:22 WBC (4.0-11.0) K/uL RBC (4.30-5.90) M/uL Hgb (12.0-16.0) g/dL Hct (36.0-46.0) % MCV (80.0-98.0) fL MCH (27.0-32.0) pg MCHC (31.0-37.0) g/dL RDW Std Deviation (28.0-62.0) fl RDW Coeff of Minnie (11.0-15.0) % Plt Count (150-400) K/uL MPV (7.40-12.00) fL Add Manual Diff Neutrophils % (Manual) (48.0-80.0) % Lymphocytes % (Manual) (16.0-40.0) % Monocytes % (Manual) (0.0-15.0) % Nucleated RBC % /100WBC Absolute Seg Neuts (1.4-5.7) Lymphocytes # (Manual) (0.6-2.4) Monocytes # (Manual) (0.0-0.8) Nucleated RBCs # K/uL INR 1.77 Sodium (136-145) mmol/L Potassium (3.5-5.1) mmol/L Chloride (98-107) mmol/L Carbon Dioxide (21.0-32.0) mmol/L BUN (7.0-18.0) mg/dL Creatinine (0.6-1.0) mg/dL Est Cr Clr Drug Dosing mL/min Estimated GFR (MDRD) ml/min Glucose (74-106) mg/dL Calcium (8.5-10.1) mg/dL Total Bilirubin (0.2-1.0) mg/dL AST (15-37) IU/L ALT (14-63) IU/L Alkaline Phosphatase (46-116) U/L Troponin I (0.000-0.056) ng/mL Total Protein (6.4-8.2) g/dL Albumin (3.4-5.0) g/dL Globulin (2.6-4.0) g/dL Albumin/Globulin Ratio (0.9-1.6) Urine Color Urine Appearance Urine pH (5.0-8.0) Ur Specific [place] (1.001-1.035) Urine Protein (NEGATIVE) mg/dL Urine Glucose (UA) (NEGATIVE) mg/dL Urine Ketones (NEGATIVE) mg/dL Urine Occult Blood (NEGATIVE) Urine Nitrite (NEGATIVE) Urine Bilirubin (NEGATIVE) Urine Urobilinogen (<2.0) EU/dL Ur Leukocyte Esterase (NEGATIVE) Urine RBC (0-2/HPF) Urine WBC (0-5/HPF) Ur Epithelial Cells (NONE-FEW) Urine Bacteria (NEGATIVE) Departure - Departure Time of Disposition: 18:42 Disposition: Home, Self-Care 01 Condition: Good Clinical Impression: Back pain - Discharge Information Referrals: PCP,Unknown [Primary Care Provider] - Forms: ED Department Discharge Additional Instructions: The following information is given to patients seen in the emergency department who are being discharged to home. This information is to outline your options for follow-up care. We provide all patients seen in our emergency department with a follow-up referral. The need for follow-up, as well as the timing and circumstances, are variable depending upon the specifics of your emergency department visit. If you don't have a primary care physician on staff, we will provide you with a referral. We always advise you to contact your personal physician following an emergency department visit to inform them of the circumstance of the visit and for follow-up with them and/or the need for any referrals to a consulting specialist. The emergency department will also refer you to a specialist when appropriate. This referral assures that you have the opportunity for follow-up care with a specialist. All of these measure are taken in an effort to provide you with optimal care, which includes your follow-up. Under all circumstances we always encourage you to contact your private physician who remains a resource for coordinating your care. When calling for follow-up care, please make the office aware that this follow-up is from your recent emergency room visit. If for any reason you are refused follow-up, please contact the [facility] Emergency Department at and asked to speak to the emergency department charge nurse. [facility] [address] [place] [id number] [place] [address] tylenol as needed for pain Follow up with primary care provider Return to ED as needed as discussed - My Orders Last 24 Hours: My Active Orders 09/12/19 16:41 EKG Documentation Completion [RC] STAT 09/12/19 16:45 CULTURE URINE [RM] Stat - Assessment/Plan Last 24 Hours: My Active Orders 09/12/19 16:41 EKG Documentation Completion [RC] STAT 09/12/19 16:45 CULTURE URINE [RM] Stat
[2019-09-12 17:55] LABS: BLOOD UREA NITROGEN,BUN 16 mg/dL (7.0-18.0); CARBON DIOXIDE,CO2 23.7 mmol/L (21.0-32.0); CHLORIDE,CL 92 mmol/L (98-107); GLUCOSE RANDOM 137 mg/dL (74-106); SODIUM,NA 127 mmol/L (136-145)
--- NOTE | 2019-09-12 18:35 | CR ---
Indication: Pain. Technique: Two views of the right scapula were obtained. Comparison: None Findings: The humeral head is seated within the glenoid. Degenerative changes are identified at the acromioclavicular and glenohumeral joint spaces. No acute fracture or subluxation is identified. Impression: Degenerative change. Dictated by Anjelica Fox MD @ Sep 12 2019 6:34PM Signed by Dr. Anjelica Fox @ Sep 12 2019 6:34PM
--- NOTE | 2019-09-12 18:38 | CR ---
Indication: Shortness of breath. Pain. Technique: Two views of the chest were obtained. Comparison: None Findings: The lungs are hyperinflated. The heart is enlarged. No infiltrate, pleural effusion, or pneumothorax is identified. Impression: Hyperinflation. Cardiomegaly. Dictated by Anjelica Fox MD @ Sep 12 2019 6:35PM Signed by Dr. Anjelica Fox @ Sep 12 2019 6:35PM
[2019-09-12 19:00] VITALS: BP 170/76; PULSE 77
== END 2019-09-12 18:50 | disposition home or self-care (01) ==
LOC: MW.ED 16:22
DX: M54.6 Pain in thoracic spine (principal); I48.91 Unspecified atrial fibrillation; I10 Essential (primary) hypertension; E11.9 Type 2 diabetes mellitus without complications; Z88.1 Allergy status to other antibiotic agents; Z79.01 Long term (current) use of anticoagulants; Z79.899 Other long term (current) drug therapy
CPT/HCPCS: 36415; 71046; 71046-26; 73010-26-RT; 73010-RT; 80053; 81001; 84484; 85025; 85610; 87086; 93005; 99282; 99283-25